=== PATIENT | female | born 1945 | race Caucasian/White ===

== ENCOUNTER → 2018-04-10 10:56 | Outpatient (CLI) | payer OTHER, SELFPAY | PROVIDERS: Family Provider Family Medicine; PCP Family Medicine; Visit Provider Family Medicine | DX: R63.4 Abnormal weight loss (principal); K90.0 Celiac disease; Z53.9 Procedure and treatment not carried out, unspecified reason ==

== ENCOUNTER → 2018-04-17 10:56 | Outpatient (CLI) | payer OTHER, SELFPAY ==
--- NOTE | 2018-04-17 12:34 | DI.CT.S_ITS ---
PROCEDURE: CT ABDOMEN PELVIS W CON INDICATIONS: WEIGHT LOSS,CELIAC DISEASE TECHNIQUE: After the administration of oral and intravenous contrast, 5 mm thick sections acquired from the diaphragms to the symphysis. 5 mm thick coronal and sagittal reformats were performed. For radiation dose reduction, the following was used: automated exposure control, adjustment of mA and/or kV according to patient size. COMPARISON: None. FINDINGS: Image quality: Excellent. ABDOMEN: Lung bases: Lung bases are clear. Heart size is normal. Solid organs: Liver is normal in size and enhancement. Gallbladder appears normal. Biliary system is non-dilated. Pancreas enhances normally. Spleen is normal in size and enhancement. No adrenal nodules. Kidneys are normal in size and enhancement, without hydronephrosis. Peritoneum and bowel: Stomach, small bowel, and colon loops are normal in caliber and wall thickness. No free fluid or air. Nodes and vessels: No retroperitoneal or mesenteric adenopathy. Aorta and inferior vena cava are normal in caliber. Miscellaneous: No ventral hernias. PELVIS: Genitourinary: Bladder wall thickness is normal. Miscellaneous: No inguinal hernias or adenopathy. Mild diverticulosis without acute diverticulitis. Bones: No suspicious bony lesions. No vertebral body compression fractures. IMPRESSION: A source of pelvic pain is not found. There is mild diverticulosis without acute diverticulitis. Clinical history indicates prior cervical carcinoma. No adenopathy or peritoneal mass lesion is found. Dictated by: Jorge Marie M.D. on 04/17/2018 at 16:03 Approved by: Jorge Marie M.D. on 04/17/2018 at 16:05
== END ==
PROVIDERS: Family Provider Family Medicine; PCP Family Medicine; Visit Provider Family Medicine
DX: K90.0 Celiac disease (principal); R63.4 Abnormal weight loss; K57.90 Diverticulosis of intestine, part unspecified, without perforation or abscess without bleeding; R10.2 Pelvic and perineal pain; Z85.41 Personal history of malignant neoplasm of cervix uteri
CPT/HCPCS: 74177; Q9967

== ENCOUNTER 2018-08-23 01:23 | Emergency (ER) | payer OTHER, SELFPAY ==
[2018-08-23 01:35] VITALS: BP 149/90; PULSE 79; RESP 18; TEMP 37.5; O2SAT 100; BMI 17.0
--- NOTE | 2018-08-23 01:52 | ED.FALL ---
HPI - Fall General Chief Complaint: Fall Stated Complaint: Stress Time Seen by Provider: 08/23/18 01:25 Source: patient and EMS Mode of arrival: EMS Limitations: no limitations History of Present Illness HPI Narrative: 73-year-old female brought in by EMS after they were called by the patient's neighbor. Is reported that the patient fell earlier this evening. She reports that she had ?3 drinks ?she states she was walking in to her living room when she fell over. She is unsure if she hit her head. She states that she remembers being under the table in the room and had a difficult time standing. She was able to crawl out from under the bed and able to reach the phone where she called her neighbor. The neighbor called 911 because they had difficulty standing her up. EMS reports that when they arrived at the house they were able to stand the patient she was able to walk without any problems. They brought her in for evaluation. Patient has no complaints. EMS report that on the ride here the patient was stating that she is having a lot of ?stress? at home with regard to family issues. Related Data Allergies Allergy/AdvReac Type Severity Reaction Status Date / Time Iodine Allergy Unknown Uncoded 08/23/18 01:48 Hydrocodone AdvReac Unknown Uncoded 08/23/18 01:48 Review of Systems Constitutional Denies headache(s) Eyes Denies change in vision ENT Ears, Nose, Mouth, and Throat: Denies vertigo, Denies dizziness, Denies headache(s) and Denies disequilibrium Cardiovascular Denies chest pain, Denies syncope, Denies rapid heart rate, Denies edema, Denies irregular heart rhythm, Denies palpitations and Denies dyspnea Respiratory Denies cough and Denies dyspnea Gastrointestinal Gastrointestinal: Denies abdominal pain, Denies nausea and Denies vomiting Genitourinary Denies dysuria Musculoskeletal Denies myalgias, Denies arthralgias and Denies numbness Integumentary/Breasts Denies rash Neurologic Denies behavioral changes, Denies confusion, Denies vertigo, Denies dizziness, Denies syncope, Denies headache(s), Denies memory loss, Denies numbness, Denies paresthesias and Denies disequilibrium Psychiatric Denies behavioral changes, Denies confusion and Denies memory loss Comments: ?Stressed ? Endocrine Denies palpitations Hematologic/Lymphatic Denies easy bleeding and Denies easy bruising Allergic/Immunologic Denies urticaria Exam Initial Vital Signs Initial Vital Signs: Vital Signs Temperature 99.5 F 08/23/18 01:35 Pulse Rate 79 08/23/18 01:35 Respiratory Rate 18 08/23/18 01:35 Blood Pressure 149/90 H 08/23/18 01:35 Pulse Oximetry 100 08/23/18 01:35 Const General: cooperative, comfortable, well developed, well groomed and No acute distress Orientation: alert, awake and oriented x3 HENMT Head: normal to inspection and normocephalic Ears: hearing grossly normal bilaterally Eyes Pupils: PERRL EOM: EOM intact bilaterally Resp Effort & Inspection: normal respiratory effort Auscultation: clear to auscultation bilaterally Cardio Rate: regular rate Rhythm: regular rhythm Pulses: radial pulses present GI Inspection: non-distended Palpation: soft, No firm and No tender Back/Spine/Pelvis Cervical Spine: No collar present, No cervical spinal tenderness and No step off deformity Thoracic/Lumbar Spine: No thoracic spinal tenderness and No lumbar spinal tenderness Skin Lesions: no lesions Rashes: no rashes Neuro General: alert, awake and oriented x3 Cognition: normal cognition Speech: speech normal Motor: muscle tone normal throughout Extrem General: normal to inspection, capillary refill normal and No edema Psych Appearance: grossly normal and well kempt [facility] Medical History (Updated 08/23/18 @ 03:12 by Janes Farr DO) Patient denies medical problems (Acute) Social History Smoking Status: Current every day smoker Social History Smoking Status: Current every day smoker Scores GCS Caren coma scale eye opening: Spontaneous Caren coma scale verbal response: Orientated [place] coma scale motor response: Obey commands Caren coma scale total score: 15 Course Orders Ordered: ED Orders 08/23/18 EKG-12 Lead Routine 08/23/18 01:53 CT head/brain wo con Stat 08/23/18 02:04 Basic Metabolic Panel Stat Complete Blood Count AUTO DIFF Stat Vital Signs - 8 hr 08/23/18 01:35 Temperature 99.5 F Pulse Rate 79 Respiratory Rate 18 Blood Pressure 149/90 H Pulse Oximetry 100 MDM - Fall Lab Data Attestation: I reviewed the patient's lab results. Result diagrams: 08/23/18 02:04 08/23/18 02:04 Lab Results 08/23/18 08/23/18 Range/Units 02:04 02:04 WBC 4.9 (4.5-11.0) X10^3/uL RBC 3.45 L (4.0-5.2) X10^6/uL Hgb 12.6 (12.0-16.0) g/dL Hct 36.2 (36-46) % MCV 104.8 H (80-100) fL MCH 36.5 H (26-34) PG MCHC 34.8 (30-36) % RDW 13.8 (11.6-14.8) % Plt Count 118 L (150-400) X10^3/uL Neut % (Auto) 50.7 (50-75) % Lymph % (Auto) 31.2 (25-40) % [place] % (Auto) 14.2 H (3-14) % Eos % (Auto) 2.8 (2-4) % Baso % (Auto) 1.1 (0-2) % Neut # (Auto) 2500 (0345-8013) /uL Lymph # (Auto) 1500 (9047-8275) /uL [place] # (Auto) 700 (0-900) /uL Eos # (Auto) 100 (0-450) /uL Baso # (Auto) 100 (0-100) /uL Sodium 132 L (137-145) mmol/L Potassium 3.2 L (3.4-5.1) mmol/L Chloride 94 L (98-107) mmol/L Carbon Dioxide 22 (22-32) mmol/L BUN 8 (7-17) mg/dL Creatinine 0.70 (0.52-1.04) mg/dL Estimated GFR > 60.0 (>60) mL/min BUN/Creatinine Ratio 11.4 (6-22) Glucose 82 (80-110) mg/dL Calcium 9.1 (8.4-10.2) mg/dL Point of Care Testing Glucose POC [address] scan - head: Radiologist's impression: Generalized involutional changes and chronic microvascular changes noted. No acute abnormality identified ECG Data Attestation: I personally reviewed and interpreted this ECG as follows: Prior ECG tracings: not available for review Interpretation: Sinus rhythm Ventricular rate is 70 First degree AV block p.r. interval 2-1 milliseconds Normal axis Normal QRS No ST T wave changes MDM Narrative Medical decision making narrative: Patient is alert and oriented x3. Has a GCS of 15. Head CT was unremarkable. No injuries noted on the exam. Patient is asking to go home. Will hold on further workup for now. Patient is given return precautions and follow-up instructions. She expressed understanding and agreement with plan. Discharge Plan Departure Patient Disposition: Home Clinical Impression: Fall Qualifiers: Encounter type: initial encounter Qualified Code(s): W19.XXXA - Unspecified fall, initial encounter Instructions: How to Prevent Falls Activity Restrictions/Additional Instructions: Recommend you continue all of your medications as directed. Contact your primary provider for a follow-up. No driving for the next 24 hours or in the future if you partake in intoxicating substances. Return to the emergency department for any new or worsening symptoms Referrals: Janes Pagan MD [Primary Care Provider] -
--- NOTE | 2018-08-23 01:53 | DI.CT.S_ITS ---
PROCEDURE: CT HEAD/BRAIN WO CON INDICATIONS: Passed out hit head not on anticoagulation TECHNIQUE: Noncontrast 4.5 mm thick angled axial sections acquired from the foramen magnum to the vertex, with coronal and sagittal reformats. For radiation dose reduction, the following was used: automated exposure control, adjustment of mA and/or kV according to patient size. COMPARISON: [facility], CT, HEAD WITHOUT CONTRAST, 10/07/2006, 14:07. FINDINGS: Image quality: Diagnostic. CSF spaces: Basal cisterns are patent. No extra-axial fluid collections. Ventricles are mildly prominent with corresponding parenchymal volume loss has developed in the interim. Brain: No midline shift. No intracranial masses or hemorrhage. [place]-white matter interface is normal. Subtle areas of low attenuation are seen within the periventricular and deep white matter of the supratentorial brain. Skull and face: Calvarium and visualized facial bones are intact, without suspicious lesions. Sinuses: Visualized sinuses and mastoids are clear. IMPRESSION: 1. No acute intracranial hemorrhage. 2. Interval development of mild parenchymal volume loss and probable chronic small vessel ischemic changes. Note: The preliminary [facility] report and the final report are concordant. Dictated by: Trey Ignacio M.D. on 08/23/2018 at 7:41 Approved by: Trey Ignacio M.D. on 08/23/2018 at 7:43
[2018-08-23 01:59] VITALS: BP 139/77; PULSE 92; RESP 18; O2SAT 97
[2018-08-23 02:13] LABS: Add Manual Diff / Slide Review NO; Basophils Absolute Auto 100 /uL (0-100); Basophils Percent Auto 1.1 % (0-2); Eosinophils Absolute Auto 100 /uL (0-450); Eosinophils Percent Auto 2.8 % (2-4); Hematocrit 36.2 % (36-46); Hemoglobin 12.6 g/dL (12.0-16.0); Lymphocytes Absolute Auto 1500 /uL (1100-4500); Lymphocytes Percent Auto 31.2 % (25-40); Mean Corpuscular HGB Conc 34.8 % (30-36); Mean Corpuscular Hemoglobin 36.5 PG (26-34); Mean Corpuscular Volume 104.8 fL (80-100); Monocytes Absolute Auto 700 /uL (0-900); Monocytes Percent Auto 14.2 % (3-14); Neutrophils Absolute Auto 2500 /uL (1500-7000); Neutrophils Percent Auto 50.7 % (50-75); Platelet Count 118 X10^3/uL (150-400); Red Blood Cell Count 3.45 X10^6/uL (4.0-5.2); Red Cell Distribution Width 13.8 % (11.6-14.8); White Blood Cell Count 4.9 X10^3/uL (4.5-11.0)
[2018-08-23 02:23] LABS: BUN Creatinine Ratio 11.4 (6-22); Blood Urea Nitrogen 8 mg/dL (7-17); Calcium 9.1 mg/dL (8.4-10.2); Carbon Dioxide 22 mmol/L (22-32); Chloride 94 mmol/L (98-107); Estimated Glomerular Filt Rate > 60.0 mL/min (>60); Glucose 82 mg/dL (80-110); HEMOLYSIS < 15 (0-50); Potassium 3.2 mmol/L (3.4-5.1); Sodium 132 mmol/L (137-145)
[2018-08-23 03:24] VITALS: BP 121/76; PULSE 86; RESP 16; O2SAT 98
--- NOTE | 2018-08-23 03:30 | PC.NURSE ---
stand by assist provided while ambulating to bathroom and back to bed.
--- NOTE | 2018-08-23 04:00 | PC.NURSE ---
Pt attempting to find phone numbers for her neighbors for a ride
== END 2018-08-23 04:06 | disposition home or self-care (01) ==
PROVIDERS: Emergency Provider Emergency Medicine; PCP Family Medicine
DX: R55 Syncope and collapse (principal); S00.81XA Abrasion of other part of head, initial encounter; W19.XXXA Unspecified fall, initial encounter
CPT/HCPCS: 70450; 80048; 82962; 85025; 93005; 93010; 99283; 99285

== ENCOUNTER → 2018-09-21 11:14 | Outpatient (ROUT) | payer OTHER, SELFPAY ==
[2018-09-21 11:34] LABS: Ammonia (NH3) < 9.0 umol/L (9-30)
== END ==
PROVIDERS: PCP Family Medicine; Visit Provider Family Medicine
DX: R55 Syncope and collapse (principal); D64.9 Anemia, unspecified; E03.9 Hypothyroidism, unspecified; Z79.899 Other long term (current) drug therapy
CPT/HCPCS: 82140

== ENCOUNTER 2019-02-15 11:30 | Observation (INO) | payer OTHER, SELFPAY ==
[2019-02-15] VITALS (10 sets, daily range): BP systolic 103–160; BP diastolic 69–131; PULSE 70–90; RESP 14–25; TEMP 36.5–36.8; O2SAT 97–100; BMI 16.8
--- NOTE | 2019-02-15 11:39 | ED_ITS ---
HPI - Fall General Chief Complaint: Fall Stated Complaint: Fall-back pain Time Seen by Provider: 02/15/19 11:39 Source: patient, family and EMS Mode of arrival: EMS History of Present Illness HPI Narrative: The patient is a 74-year-old female who presents with back pain. 5 days ago she was standing bending over un plugging the television to reset it when she fell backwards landing on her bottom. Since then she has had intense spasming and pain unable to stand up. She has been crawling around on the floor since then. It is questionable how long she has had incontinence however she states since the fall she can no longer tell when she has to go it just comes. She denies any weakness in her lower extremities no numbness or tingling. says that he can't later keep crawling around on for. She has only been taking ibuprofen for pain she currently does not want anything for pain. She denies any chest pain or shortness of breath. No abdominal pain nausea or vomiting. She denies hitting her head no cervical pain. MD complaint: fall Onset (ago): day(s) (5) Fall from: standing Fall witnessed: yes, by family Place fall occurred: home Loss of consciousness: none Related Data Home Medications Medication Instructions Recorded Confirmed levothyroxine 56 mcg PO QAM 02/15/19 02/15/19 Allergies Allergy/AdvReac Type Severity Reaction Status Date / Time Iodine and Iodide Containing Allergy Unknown Verified 02/15/19 11:37 Produc hydrocodone AdvReac Unknown Verified 02/15/19 11:37 Review of Systems Review of Systems ROS Unobtainable: All systems reviewed & are unremarkable except as noted in HPI and below Constitutional Constitutional: Denies chills, Denies fever(s), Denies lethargy and Denies weakness ENT Ears, Nose, Mouth, and Throat: Denies change in voice, Denies neck pain and Denies sore throat Cardiovascular Cardiovascular: Denies chest pain, Denies irregular heart rhythm, Denies lig htheadedness, Denies palpitations, Denies dyspnea, Denies dyspnea on exertion and Denies orthopnea Respiratory Respiratory: Denies cough, Denies dyspnea, Denies dyspnea on exertion and Denies wheezing Gastrointestinal Gastrointestinal: Denies abdominal pain, Denies change in bowel habits, Denies diarrhea, Denies nausea and Denies vomiting Genitourinary Genitourinary: Denies hematuria, Denies flank pain, Reports urinary incontinence and Reports urinary urgency Musculoskeletal Musculoskeletal: Reports as per HPI, Reports back pain and Denies neck pain Integumentary/Breasts Skin/Breast: Denies pruritus, Denies erythema, Denies rash and Denies wounds Neurologic Neurologic: Denies weakness Endocrine Endocrine: Denies palpitations Allergic/Immunologic Allergic/Immunologic: Denies wheezing Patient History Medical History (Updated 02/15/19 @ 16:11 by Ruth Donaldson DO) Hypothyroid (Acute) Patient denies medical problems (Acute) Social History household members: spouse Smoking Status: Former smoker Smoking Status: Former smoker alcohol intake frequency: 3 or more drinks per day Substance Use Type: marijuana Exam Initial Vital Signs Initial Vital Signs: Vital Signs Temperature 98.1 F 02/15/19 11:31 Pulse Rate 80 02/15/19 11:31 Respiratory Rate 18 02/15/19 11:31 Blood Pressure 160/131 H 02/15/19 11:31 Pulse Oximetry 100 02/15/19 11:31 GENERAL: Alert thin elderly female no acute distress HEENT: Head atraumatic,EOMI, pupils reactive, CARDIOVASCULAR: Regular rate and rhythm without murmurs, rubs or gallops. RESPIRATORY: Breath sounds equal bilaterally, no wheezes rales or rhonchi. ABDOMEN: Soft, nontender. Normoactive bowel sounds all 4 quadrants. No guarding or rebound. BACK: No sign of trauma no vertebral tenderness she is tender in her sacral area no step-off RECTAL: Very good sphincter tone EXTREMITIES: Normal range of motion, no clubbing or edema. Neurovascularly intact NEUROLOGICAL: Alert and oriented x4. SKIN: Warm, dry, no laceration, no petechiae, no rashes or lesions. Course Orders Ordered: ED Orders 02/15/19 11:48 XR lumbar spine 2-3V Stat XR sacrum coccyx min 2V Stat 02/15/19 12:20 Complete Blood Count AUTO DIFF Stat Comprehensive Metabolic Panel Stat Creatine Kinase Stat 02/15/19 13:16 CT lumbar spine wo con Stat 02/15/19 13:18 Consult to Physical Therapy Evaluate & Treat Cyclobenzaprine HCl (Flexeril) 5 mg PO Q8HR PRN PRN Reason: Spasms Ketorolac Tromethamine (Toradol) 15 mg IV Q8H [facility] Stop: 02/16/19 10:46 Levothyroxine Sodium (Synthroid) 56 mcg PO 0600 [facility] Discontinued Medications Cyclobenzaprine HCl (Flexeril) 5 mg PO NOW ONE Stop: 02/15/19 13:46 Last Admin: 02/15/19 13:51 Dose: 5 mg Documented by: DIANA Ketorolac Tromethamine (Toradol) 15 mg IM NOW ONE Stop: 02/15/19 13:46 Last Admin: 02/15/19 13:51 Dose: 15 mg Documented by: DIANA Vital Signs Vital signs: Vital Signs - 8 hr 02/15/19 11:31 02/15/19 11:41 02/15/19 12:38 Temperature 98.1 F Pulse Rate 80 84 78 Respiratory Rate 18 14 18 Blood Pressure 160/131 H Blood Pressure [Left Arm] 154/94 H 152/69 H Pulse Oximetry 100 100 100 02/15/19 13:30 02/15/19 14:37 02/15/19 15:05 Temperature Pulse Rate 78 88 77 Respiratory Rate 18 20 19 Blood Pressure Blood Pressure [Left Arm] 153/91 H 153/98 H 103/87 Pulse Oximetry 97 97 97 02/15/19 16:01 Temperature Pulse Rate 79 Respiratory Rate 25 H Blood Pressure Blood Pressure [Left Arm] 154/92 H Pulse Oximetry 97 MDM - Fall Lab Data Attestation: I reviewed the patient's lab results. Result diagrams: 02/15/19 12:20 02/15/19 12:20 Labs: Lab Results 02/15/19 02/15/19 02/15/19 Range/Units 12:20 12:20 12:20 WBC 6.3 (4.5-11.0) X10^3/uL RBC 3.69 L (4.0-5.2) X10^6/uL Hgb 13.6 (12.0-16.0) g/dL Hct 38.8 (36-46) % MCV 105.0 H (80-100) fL MCH 36.9 H (26-34) PG MCHC 35.1 (30-36) % RDW 14.3 (11.6-14.8) % Plt Count 134 L (150-400) X10^3/uL Neut % (Auto) Not Reportable Lymph % (Auto) Not Reportable [place] % (Auto) Not Reportable Eos % (Auto) Not Reportable Baso % (Auto) Not Reportable Lymph # (Auto) Not Reportable [place] # (Auto) Not Reportable Baso # (Auto) Not Reportable Total Counted 100 Seg Neutrophils % 53.0 (38-70) % Band Neutrophils % 3.0 (3-7) % Lymphocytes % (Manual) 17.0 L (25-45) % Monocytes % (Manual) 22.0 H (2-11) % Eosinophils % (Manual) 4.0 (2-4) % Metamyelocytes % 1.0 H (-0) % Neutrophils # (Manual) 3528 (4966-8014) /uL Platelet Estimate Decreased on smear Plt Morphology Comment RBC Morphology See below Macrocytosis 3+ H Sodium 138 (137-145) mmol/L Potassium 2.9 L (3.4-5.1) mmol/L Chloride 101 (98-107) mmol/L Carbon Dioxide 22 (22-32) mmol/L BUN 38 H (7-17) mg/dL Creatinine 1.00 (0.52-1.04) mg/dL Estimated GFR 54.2 L (>60) mL/min BUN/Creatinine Ratio 38.0 H (6-22) Glucose 97 (80-110) mg/dL Calcium 9.5 (8.4-10.2) mg/dL Total Bilirubin 1.5 H (0.2-1.3) mg/dL AST 97 H (14-36) IU/L ALT 48 H (<35) IU/L Alkaline Phosphatase 89 (38-126) U/L Total Creatine Kinase 522 H (30-135) U/L Total Protein 7.8 (6.3-8.2) g/dL Albumin 4.3 (3.5-5.0) g/dL Globulin 3.5 (1.7-4.1) g/dL Albumin/Globulin Ratio 1.2 (1.0-2.8) TSH 26.40 H (0.47-4.68) uIU/mL Imaging Data Lumbar x-ray: Radiologist's Impression: PROCEDURE: XR LUMBAR SPINE 2-3V INDICATIONS: pain fall TECHNIQUE: 3 views of the lumbar spine were acquired. COMPARISON: Same day coccyx and sacrum radiographs. CT abdomen and pelvis 04/17/2018. FINDINGS: Bones: 5 [id number] vertebrae are present. There is mild scoliosis. No vertebral body compression fractures. Extensive degenerative change most pronounced at left L3-L4. L4-L5 facet joint hypertrophy. No suspicious bony lesions. Osteopenia. Soft tissues: Overlying bowel gas pattern is normal. No suspicious soft tissue calcifications. Vascular calcifications. IMPRESSION: No acute osseous abnormality. Extensive degenerative change and mild scoliosis. Dictated by: Richard Dias M.D. on 02/15/2019 at 12:40 Sacral x-ray: Radiologist's Impression: PROCEDURE: XR SACRUM COCCYX MIN 2V INDICATIONS: pain fall TECHNIQUE: 3 views of the sacrum and coccyx acquired. COMPARISON: [facility], CT, CT ABDOMEN PELVIS W CON, 04/17/2018, 12:07. FINDINGS: Bones: The sacrum and coccyx are not adequately evaluated on this examination. No obvious displaced fractures are appreciated. Degenerative changes of the sacroiliac joints and pubis symphysis are noted. Soft tissues: Visualized bowel gas pattern is normal. No suspicious soft tissue densities. IMPRESSION: Limited evaluation of the sacrum and coccyx. No displaced fractures are appreciated. Dictated by: Trey Ignacio M.D. on 02/15/2019 at 11:[address]: Radiologist's Impression: PROCEDURE: CT LUMBAR SPINE WO CON INDICATIONS: fall pain, sacral and lumbar xray neg can't walk TECHNIQUE: Noncontrast 3 mm thick sections acquired from the T12 level to the sacrum. Sagittal and coronal reformats were constructed. For radiation dose reduction, the following was used: automated exposure control. COMPARISON: None. FINDINGS: Image quality: Excellent. Bones: Mild dextrocurvature. Trace anterolisthesis of L5 on S1, trace anterolisthesis of L4 on L5. No acute vertebral body compression fractures. Bilateral sacral insufficiency fractures with a horizontal component at the superior endplate of S2. No sudha picious lytic or blastic bony lesions. No pars defects. T12-L1: No canal stenosis or foraminal stenosis. L1-L2: No canal stenosis or foraminal stenosis. L2-L3: Mild disc bulge and facet ligament hypertrophy. Mild canal stenosis. No significant foraminal stenosis. L3-L4: Arch chronic disc height loss. Mild disc bulge. Mild facet ligament hypertrophy. Mild canal stenosis. L4-L5: Severe multifactorial canal stenosis secondary to disc bulge and facet and ligament hypertrophy and minimal anterolisthesis. Mild right foraminal narrowing and moderate left femoral narrowing. L5-S1: Posterior disc bulge. Mild anterolisthesis. Facet and ligament hypertrophy. Mild canal stenosis. Soft tissues: No retroperitoneal masses or hematomas. Visualized aorta is normal in caliber. Sigmoid diverticulosis. Diffuse aortic atherosclerotic calcifications. IMPRESSION: 1. Bilateral sacral insufficiency fractures. 2. Multifactorial canal stenosis is severe at L4-L5. It is mild at L3-L4 and L5-S1. Dictated by: Bernard Orellana M.D. on 02/15/2019 at 13:48 MDM Narrative Medical decision making narrative: The patient had injury to her back. She now has urinary incontinence which is questionable whether it is new or worsened over the past few days. She is actually moving her legs very well and has no numbness tingling or weakness. She also has very good rectal tone, I do not suspect cauda equina syndrome at this time. 14:30 Discussed case with orthopedic Dr. Simental who states patient may ambulate and weight bear as tolerated she will likely need a walker and possible wheelchair in till fracture heals however no intervention is required. She also likely has osteoporosis and needs work up of that and possibly calcium and vitamin D supplements. Patient is evaluated by Physical therapy she is able to ambulate some with a walker however patient has stairs physical therapy suggest patient be admitted for further evaluation and pain control. Dr. Pagan updated patient's symptoms test results recommendations of ortho and physical with observation Discharge Plan Departure Patient Disposition: Admitted as Observation Clinical Impression: Bilateral sacral insufficiency fracture Qualifiers: Encounter type: initial encounter Qualified Code(s): M84.48XA - Pathological fracture, other site, initial encounter for fracture Discharge Date/Time: 02/15/19 17:04 Admit Date/Time: 02/15/19 16:09 Admit Provider: Janes Pagan
--- NOTE | 2019-02-15 11:48 | DI.RAD.S_ITS ---
PROCEDURE: XR LUMBAR SPINE 2-3V INDICATIONS: pain fall TECHNIQUE: 3 views of the lumbar spine were acquired. COMPARISON: Same day coccyx and sacrum radiographs. CT abdomen and pelvis 04/17/2018. FINDINGS: Bones: 5 [id number] vertebrae are present. There is mild scoliosis. No vertebral body compression fractures. Extensive degenerative change most pronounced at left L3-L4. L4-L5 facet joint hypertrophy. No suspicious bony lesions. Osteopenia. Soft tissues: Overlying bowel gas pattern is normal. No suspicious soft tissue calcifications. Vascular calcifications. IMPRESSION: No acute osseous abnormality. Extensive degenerative change and mild scoliosis. Dictated by: Richard Dias M.D. on 02/15/2019 at 12:40 Approved by: Richard Dias M.D. on 02/15/2019 at 12:43
--- NOTE | 2019-02-15 11:48 | DI.RAD.S_ITS ---
PROCEDURE: XR SACRUM COCCYX MIN 2V INDICATIONS: pain fall TECHNIQUE: 3 views of the sacrum and coccyx acquired. COMPARISON: [facility], CT, CT ABDOMEN PELVIS W CON, 04/17/2018, 12:07. FINDINGS: Bones: The sacrum and coccyx are not adequately evaluated on this examination. No obvious displaced fractures are appreciated. Degenerative changes of the sacroiliac joints and pubis symphysis are noted. Soft tissues: Visualized bowel gas pattern is normal. No suspicious soft tissue densities. IMPRESSION: Limited evaluation of the sacrum and coccyx. No displaced fractures are appreciated. Dictated by: Trey Ignacio M.D. on 02/15/2019 at 11:50 Approved by: Trey Ignacio M.D. on 02/15/2019 at 11:52
[2019-02-15 12:49] LABS: Alanine Aminotransferase 48 IU/L (<35); Albumin 4.3 g/dL (3.5-5.0); Albumin Globulin Ratio 1.2 (1.0-2.8); Alkaline Phosphatase 89 U/L (38-126); Aspartate Aminotransferase 97 IU/L (14-36); Bilirubin Total 1.5 mg/dL (0.2-1.3); Blood Urea Nitrogen 38 mg/dL (7-17); Calcium 9.5 mg/dL (8.4-10.2); Carbon Dioxide 22 mmol/L (22-32); Chloride 101 mmol/L (98-107); Creatine Kinase 522 U/L (30-135); Estimated Glomerular Filt Rate 54.2 mL/min (>60); Globulin 3.5 g/dL (1.7-4.1); Glucose 97 mg/dL (80-110); HEMOLYSIS < 15 (0-50); Potassium 2.9 mmol/L (3.4-5.1); Sodium 138 mmol/L (137-145); Total Protein 7.8 g/dL (6.3-8.2)
[2019-02-15 12:50] LABS: Hematocrit 38.8 % (36-46); Hemoglobin 13.6 g/dL (12.0-16.0); Mean Corpuscular HGB Conc 35.1 % (30-36); Mean Corpuscular Hemoglobin 36.9 PG (26-34); Platelet Count 134 X10^3/uL (150-400); Red Blood Cell Count 3.69 X10^6/uL (4.0-5.2); Red Cell Distribution Width 14.3 % (11.6-14.8); White Blood Cell Count 6.3 X10^3/uL (4.5-11.0)
[2019-02-15 12:51] LABS: Add Manual Diff / Slide Review YES
--- NOTE | 2019-02-15 13:16 | DI.CT.S_ITS ---
PROCEDURE: CT LUMBAR SPINE WO CON INDICATIONS: fall pain, sacral and lumbar xray neg can't walk TECHNIQUE: Noncontrast 3 mm thick sections acquired from the T12 level to the sacrum. Sagittal and coronal reformats were constructed. For radiation dose reduction, the following was used: automated exposure control. COMPARISON: None. FINDINGS: Image quality: Excellent. Bones: Mild dextrocurvature. Trace anterolisthesis of L5 on S1, trace anterolisthesis of L4 on L5. No acute vertebral body compression fractures. Bilateral sacral insufficiency fractures with a horizontal component at the superior endplate of S2. No suspicious lytic or blastic bony lesions. No pars defects. T12-L1: No canal stenosis or foraminal stenosis. L1-L2: No canal stenosis or foraminal stenosis. L2-L3: Mild disc bulge and facet ligament hypertrophy. Mild canal stenosis. No significant foraminal stenosis. L3-L4: Arch chronic disc height loss. Mild disc bulge. Mild facet ligament hypertrophy. Mild canal stenosis. L4-L5: Severe multifactorial canal stenosis secondary to disc bulge and facet and ligament hypertrophy and minimal anterolisthesis. Mild right foraminal narrowing and moderate left femoral narrowing. L5-S1: Posterior disc bulge. Mild anterolisthesis. Facet and ligament hypertrophy. Mild canal stenosis. Soft tissues: No retroperitoneal masses or hematomas. Visualized aorta is normal in caliber. Sigmoid diverticulosis. Diffuse aortic atherosclerotic calcifications. IMPRESSION: 1. Bilateral sacral insufficiency fractures. 2. Multifactorial canal stenosis is severe at L4-L5. It is mild at L3-L4 and L5-S1. Dictated by: Bernard Orellana M.D. on 02/15/2019 at 13:48 Approved by: Bernard Orellana M.D. on 02/15/2019 at 13:55
[2019-02-15 13:21] LABS: Neutrophils Absolute Manual 3528 /uL (3000-5900); Total Cells Counted 100
[2019-02-15 13:22] LABS: Macrocytosis 3+; Platelet Estimate Decreased on smear
[2019-02-15] MEDS: CYCLOBENZAPRINE 5 MG TABLET PO ×2 (13:51→22:18)
[2019-02-15] MEDS: KETOROLAC 60 MG/2 ML VIAL 15 MG IM (13:51)
--- NOTE | 2019-02-15 17:13 | PT.IIE ---
Medical History (Last Updated 02/15/19 @ 11:38 by Heather Lynne, RN) Hypothyroid (Acute) Patient denies medical problems (Acute) Physical Therapy Inpatient Evaluation/Re-Eval M1 PT/OT-IP Prior Functional Status Start: 02/15/19 13:52 Freq: Status: Active Protocol: Document 02/15/19 16:45 AW (Rec: 02/15/19 17:13 AW [id number]) Medical Review Prior Functional Status Medical History Reviewed Yes Communication WNL Mobility and Gait Modified independent with use of hurrycane at all times Activities of Daily Living and IADL's Independent including driving Social History Household Members spouse Living Arrangements House Number of Floors (Floors) Two Floors Number of Stairs To Enter/Railing? 8 BUCKY with wide bilateral rails (can only use one at a time). Pt and her spouse live on the entry driver operator without need to access second floor. There is a back entrance with only 2 steps, but can only be accessed by traversing uneven ground. Home Environment Standard Height Toilet,Tub/ Shower Doors Home Equipment Quad Cane,Crutches,Grab Bars In Shower Employment Status Retired Additional Social History Comment Pt lives with her spouse. Both are retired. Her is available and able to assist as needed. M2 PT-IP Current Condition Start: 02/15/19 13:52 Freq: Status: Active Protocol: Document 02/15/19 16:45 AW (Rec: 02/15/19 17:13 AW [id number]) Physical Therapy Current Condition Current Condition Evaluation Date 02/15/19 Treatment Diagnosis sacral insufficiency fractures , difficulty in walking Onset Date 02/10/19 Weight Bearing Status Weight Bearing Status Weight Bear as Tolerated Allowed Weight Bearing Amount (enter % Per Dr. Donaldson, Dr. Malin or #) (%) consulted and recommended WBAT with assistive device. M3 PT-IP Subjective Start: 02/15/19 13:52 Freq: Status: Active Protocol: Document 02/15/19 16:45 AW (Rec: 02/15/19 17:13 AW [id number]) Subjective Physical Therapy Visit Type Type Initial Evaluation Visit Start Time 15:14 Visit Stop Time 15:48 Total Visit Minutes 34 Notes Pt seen with spouse, Benjamin, present. Number of DIRECTOR OF RETAIL Visits 0 Physical Therapy Visit Comments Patient Comments Pt willing to attempt mobility even though she has not been on her feet since last Friday. Patient Goals To go home as soon as possible Therapy Pain Assessment Pain When Pain Assessed During Mobility Pain Present Pain Present Pain Reported Location R hip Intensity 9 Scale Used 1/10 at rest; 9/10 with mobility Description Acute,Sharp,Shooting Pain Behaviors Calling Out,Facial Grimacing, Guarding,Restlessness,Wincing Pain Management Techniques Distraction,Modification of Treatment,Re-positioning M4 PT-IP Mobility and Gait Start: 02/15/19 13:52 Freq: Status: Active Protocol: Document 02/15/19 16:45 AW (Rec: 02/15/19 17:13 AW [id number]) PT-Bed Mobility Assessment Rolling Type of Rolling Roll to Right,Roll to Left Level of Assist Contact Guard Assistance Supine to Sit Supine to Sit Moderate Assistance,1 Person Assistance Sit to Supine Sit to Supine Minimal Assistance,1 Person Assistance Scooting Scooting to Edge of Bed Minimal Assistance Scooting Up and Down in Bed Dependent PT-Transfer Assessment Sit to and From Stand Sit to and from Stand Minimal Assistance,1 Person Assistance,Use of Upper Extremities Equipment Transfer Assistive Device Gait Belt,Front Wheeled Walker Orthotic/Prosthetic Devices or Brace: No Transfers Transfer Destination Bed Transfer Technique pt ambulated with FWW Transfer Ability Level of Assist Minimal Assistance,1 Person Assistance,Use of Upper Extremities Comments Mobility Comments Pt reports highly irritable pain symptoms with movement, but improvement as soon as she is able to rest. Initial attempts at supine to sit were unsuccessful, including log rolling right and left. After explaining to pt that the transition to sitting would likely be the most painful, she was willing to work through it. PT placed a cotton draw sheet under the pt's pelvis and provided mod A x 1 to pivot her hips to face the right side of the bed. In sitting, pt was observed to lean leftward in order to unweight her right side. She was able to stand with FWW min A x 1 with report of mild lightheadedness which resolved within a minute. BP in supine was 103/87 and fabiola to 127/ 105 in standing. Once pt's symptoms cleared, she was able to ambulate 10 feet with FWW CGA and then transfer back to supine min A x 1 with assist to lift her legs to the bed. With pt reporting significantly increased pain, BP was assessed at 139/118 once repositioned on the gurney. Gait Assessment Gait Gait Assistance Required: Contact Guard Assist Distance (Feet) 10 Able to Maintain Weight Bearing Status Yes During Gait Assistive Devices Assistive Device Gait Belt,Front Wheeled Walker Orthotic/Prosthetic Devices or Brace: No Gait Deviations General Gait Pattern Antalgic,Decreased Stride Length,Decreased Feet Clearance,Flexed Trunk,Step-to Gait Factors Limiting Gait Function Factors Limiting Gait Function Decreased Activity Tolerance, Decreased Strength,Pain Comments Gait Comments See mobility comments for detail. Stair Climbing Assessment Comments Stair Climbing Comments Not assessed. PT-Balance Assessment Sitting Balance and Reactions Static Sitting Balance Ability Good Dynamic Sitting Balance Ability Good Standing Balance and Reactions Static Standing Balance Ability Fair Dynamic Standing Balance Ability Fair Device Used FWW M5 PT-IP Objective Assessments Start: 02/15/19 13:52 Freq: Status: Active Protocol: Document 02/15/19 16:45 AW (Rec: 02/15/19 17:13 AW [id number]) Orientation Orientation/Cognition Level of Alertness Alert Orientation Name,Day of Week,Place, Situation Language Function Ability No Deficits Noted Safety Awareness Understands Safety Issues Memory Description No Deficits Noted Gross Range of Motion Upper Extremity ROM Assessment Left Impaired Impairments Remote history of left proximal humerus fracture ( 2008) Lower Extremity ROM Assessment Bilaterally Impaired Impairments Due to pain Strength Lower Extremity Strength Assessment Bilaterally Impaired Hip 3+/5 Knee 4/5 Ankle 4+/5 Comments Strength Comments Strength assessment limited due to report of hip pain (R>L ) with resisted movement Coordination Assessment Gross Coordination Gross Coordination WNL Sensation Assessment Sensation Gross Sensation WNL M6 PT-IP Treatment Start: 02/15/19 13:52 Freq: Status: Active Protocol: Document 02/15/19 16:45 AW (Rec: 02/15/19 17:13 AW [id number]) Physical Therapy Treatment Education Education Provided Precautions,Weight Bearing Status,Safety Other Treatments Other Treatment Performed PT educated pt on plan of care , weight bearing status, and safe use of FWW M7 PT-IP Assessment and Plan Start: 02/15/19 13:52 Freq: Status: Active Protocol: Document 02/15/19 16:45 AW (Rec: 02/15/19 17:13 AW [id number]) PT Summary Assessment and Plan Potential Rehabilitation Potential Excellent Status of Condition at Evaluation Evolving Summary Impairments Pain,ROM,Strength,Bed Mobility ,Transfers,Gait,Activity Tolerance Assessment Summary Joanie is a 74 yo woman who fell at home 5 days ago and has not been on her feet since that time. She has mobilized by rolling and crawling on the ground. She was seen for PT evaluation in the ED where CT revealed 1. Bilateral sacral insufficiency fractures. 2. Multifactorial canal stenosis is severe at L4-L5. It is mild at L3-L4 and L5-S1. At baseline, pt is modified independent for functional mobility with use of hurrycane at all times and independent for ADL/IADL's. At the time of this evaluation, pt required min to mod assist x 1 for all mobility due to complaints of 9/10 pain with any weightbearing. She was able to walk with FWW CGA but with significantly decreased weightbearing on the R LE. Pt also shifts leftward in sitting and in standing to offweight the right side. PT discharge recommendation is tentatively for home with assistance and outpatient PT but will need to continue assessment once pain is better managed. Goals Bed Mobility Goal Standby Assistance Transfer Goal Standby Assistance,Front Wheeled Walker Gait Goal Standby Assistance,Front Wheel Walker Gait Distance 100 Other Goals - up/down 8 steps with unilateral railing CGA Days to Meet Goals 5 Frequency of Treatment Frequency Of Treatment Twice a Day Treatment Plan Physical Therapy Treatment Plan Bed Mobility Training,Transfer Training,Gait Training, Therapeutic Exercise,Balance Retraining,Discharge Planning, Hot or Cold Pack Other Recommendations and Next Treatment bed mobility, transfers, gait, Focus trial stairs if able Recommendations To Nursing Amount of Assist Needed 1 Person Assist Discharge Recommendations PT Discharge Recommendations Home with Assistance,Home Health Other Discharge Recommendations Will continue to assess Equipment Needed for Home Before FWW for home use Discharge
--- NOTE | 2019-02-15 18:24 | PM.HP.1 ---
History of Present Illness History of Present Illness Date Patient Seen: 02/15/19 Time Patient Seen: 18:00 Chief complaint: Fall-back pain Narrative: Patient is 74-year-old female with 5 days history of following words and landing on her bottom. She did not trip just simply lost balance and fell after pulling a cord out from apply again. Did not hit her head did not lose consciousness but gradually over the next few days developed increasingly severe pain with muscle spasms and bony pain. Also has some neurologic abnormality in that she doesn't feel clearly when she needs to go to the bathroom and that is new since her fall. She has had such bad pain that she actually was crawling around home rather than being able to stand or straight. She had intermittently taken some ibuprofen for pain at home but not doing much. Patient has a long history of alcohol use and smoking as well but she states that this and injury occurred in the manager community outreach after getting up in she was not intoxicated at that point. Patient History Medical History (Updated 02/15/19 @ 16:11 by Ruth Donaldson DO) Hypothyroid (Acute) Patient denies medical problems (Acute) Family & Social History Social History: household members spouse Prior Living Arrangements House Safety & Behavioral: Feels Safe in Current Yes Environment Been Physically Hurt or No Threatened By a Person Tobacco & Substance use: Smoking Status Former smoker alcohol intake frequency 3 or more drinks per day Substance Use Type marijuana Meds Home Medications and Allergies Home Medications Medication Instructions Recorded Confirmed Type levothyroxine 56 mcg PO QAM 02/15/19 02/15/19 History Allergies Allergy/AdvReac Type Severity Reaction Status Date / Time Iodine and Iodide Containing Allergy Unknown Verified 02/15/19 11:37 Produc hydrocodone AdvReac Unknown Verified 02/15/19 11:37 Review of Systems Review of Systems Narrative: Patient sitting in bed comfortably answering questions clearly not oriented to place time and my Dandy PE are RLA in vision is intact speech clear nose will swallowing problems Denies chest pain significant shortness of breath upper back pain Denies abdominal pain Denies palpitations significant edema or pressure on chest Abdomen nontender she denies any nausea vomiting abdominal enlargement Complains of low back pain in the sacral area which is where her fracture is and also where muscle spasms or serious. Patient unable to tell when she needs to urinate and so is incontinent without warning catheter placed in sure were not accumulating volume Lower extremities was since cessation primarily intact and symmetrical diffuse weakness complaints from patient in terms of her ability to move around smoking S line history of alcohol use discussed and negative ache except for those mentioned above Exam Vital Signs (past 8 hours): - 02/15/19 11:31 02/15/19 11:41 02/15/19 12:38 Temperature 98.1 F Pulse Rate 80 84 78 Respiratory Rate 18 14 18 Blood Pressure 160/131 H Blood Pressure [Left Arm] 154/94 H 152/69 H Pulse Oximetry 100 100 100 02/15/19 13:30 02/15/19 14:37 02/15/19 15:05 Temperature Pulse Rate 78 88 77 Respiratory Rate 18 20 19 Blood Pressure Blood Pressure [Left Arm] 153/91 H 153/98 H 103/87 Pulse Oximetry 97 97 97 02/15/19 16:01 02/15/19 17:02 02/15/19 17:15 Temperature 97.7 F Pulse Rate 79 78 70 Respiratory Rate 25 H 20 18 Blood Pressure 154/78 H Blood Pressure [Left Arm] 154/92 H 147/93 H Pulse Oximetry 97 100 100 Oxygen Delivery Method Room Air Oxygen Flow Rate 0 Narrative Exam Narrative: In a patient being in questions appropriately in clearly with clear speech and clear recognition of her location and my identity PERRLA EOMs are intact Mouth without any abnormality bruising issues or malalignments Neck without mass or bruising. Is supple without any JVD Lungs are clear with decreased breath sounds diffusely Cardiovascular exam shows regular rate rhythm without murmur S3 or significant edema Abdomen without hepatosplenomegaly mass rebound or guarding bowel sounds are present and symmetrical Low back has significant pain with any movement or palpation an area of sacrum. Lower extremities show numbness down posterior and patient's incontinence suggest that she is some awareness and control there Skin without significant bruising redness infection cellulitis or concerning skin lesions Rest of patient's neurologic is intact to motor except this limited by pain cognitive speech and sensory except as described above Objective Labs Result Diagrams: 02/15/19 12:20 02/15/19 12:20 Labs: Laboratory Results - last 24 hr 02/15/19 02/15/19 12:20 12:20 WBC 6.3 RBC 3.69 L Hgb 13.6 Hct 38.8 MCV 105.0 H MCH 36.9 H MCHC 35.1 RDW 14.3 Plt Count 134 L Neut % (Auto) Not Reportable Lymph % (Auto) Not Reportable Orange % (Auto) Not Reportable Eos % (Auto) Not Reportable Baso % (Auto) Not Reportable Lymph # (Auto) Not Reportable Orange # (Auto) Not Reportable Baso # (Auto) Not Reportable Total Counted 100 Seg Neutrophils % 53.0 Band Neutrophils % 3.0 Lymphocytes % (Manual) 17.0 L Monocytes % (Manual) 22.0 H Eosinophils % (Manual) 4.0 Metamyelocytes % 1.0 H Neutrophils # (Manual) 3528 Platelet Estimate Decreased on smear Plt Morphology Comment RBC Morphology See below Macrocytosis 3+ H Sodium 138 Potassium 2.9 L Chloride 101 Carbon Dioxide 22 BUN 38 H Creatinine 1.00 Estimated GFR 54.2 L BUN/Creatinine Ratio 38.0 H Glucose 97 Calcium 9.5 Total Bilirubin 1.5 H AST 97 H ALT 48 H Alkaline Phosphatase 89 Total Creatine Kinase 522 H Total Protein 7.8 Albumin 4.3 Globulin 3.5 Albumin/Globulin Ratio 1.2 Assessment & Plan Assessment & Plan narrative: Sent as assessment 1. Sacral fracture following a ground level fall. Patient was not intoxicated or tripping at the time. Pain control with Toradol at this point will get physical therapy evaluation and try to increase movement and help with discomfort. Assessment 2. Hypothyroidism will have patient continue with her current medication level for that. Assessment 3. Smoker. Patient has only had a few cigarettes over the course of last week because she can't move part of her well enough to go where she can smoke. I've encouraged her to consider a nicotine patches during this admission try minimize nicotine withdrawal. Assessment 4. Long history of alcohol abuse. Patient says she has only had a few drinks in the last week. Did not appear intoxicated or and not notice she smell of alcohol at this point. I suspect that she is not very likely to have withdrawal if she is indeed only having the she describes over the course of recent past. Will watch closely and initiate CIWA protocol if indicated. Time Spent With Patient Time with patient: Greater than 35 minutes
[2019-02-15 20:25] LABS: Bacteria Urine None Seen
[2019-02-15 20:26] LABS: Appearance Urine UA CLEAR; Bilirubin Urine UA NEGATIVE (NEGATIVE); Color Urine UA YELLOW; Glucose Urine UA NEGATIVE (Negative); Ketones Urine UA TRACE (NEGATIVE); Leukocyte Esterase Urine UA NEGATIVE (NEGATIVE); Nitrite Urine UA NEGATIVE (Negative); Occult Blood Urine UA NEGATIVE (Negative); Protein Urine UA TRACE (Negative); Urobilinogen Urine UA 0.2 E.U./dL (0.2)
[2019-02-15 20:30] LABS: pH Urine UA 5.5 (4.5-8.0)
[2019-02-15 20:31] LABS: RBC Urine 0-1/HPF (0-5/HPF); WBC Urine 1-5/HPF (0-5/HPF)
[2019-02-15 20:32] LABS: Culture Indicated Urine Cult Not Indicated; Mucus Urine 1+ (Negative); Squamous Epithelial Cell Urine 0-1 /HPF (0-5/HPF); Transitional Epi Cells Urine 0-1/HPF (0-5/HPF)
[2019-02-15] MEDS: SERTRALINE 50 MG TABLET PO (22:18)
[2019-02-15] MEDS: KETOROLAC 15 MG/ML VIAL IV (22:18)
--- NOTE | 2019-02-15 22:36 | PC.NURSE ---
Admission/Evening Shift Note- Patientarrived to reychase from ER at 1750. slider sheet used to transfer patient from stretcher to bed. Patient alert and oriented and able to make needs known to staff. Admission questions done, home medications reviewed, and physicalassessment completed. Tyler placed and urine sample sent to lab.Oriented patient to bed and bed controls, room, lights, phone, menu, and call pruitt/tv remote. IV line placed, patient tolerated without issue. safety measures in place. bed alarm activated. call pruitt and phone within reach. will continue to monitor.
[2019-02-16] VITALS (7 sets, daily range): BP systolic 118–185; BP diastolic 74–97; PULSE 63–95; RESP 16–20; TEMP 36.1–37.2; O2SAT 96–99
--- NOTE | 2019-02-16 05:15 | PC.NURSE ---
Addendum entered by Vickey Bills R.N. 02/16/19 06:56: Patient potassium level 3.3, DR. Pagan notified. Dr. Pagan ordered 20 MEQ potassium 2x daily. I also asked for an order of tylenol and ibuprofen. Dr. Pagan ordered 2 tab 325mg Q4-6 hrs, and 2 tablets 200mg of ibuprofen Q4-6 hrs. Original Note: Patient repositioned Q2 hours, VSS, denies pain. CMS is intact. SCD's applied, bed is low and locked, call light within reach.
[2019-02-16 05:18] LABS: BUN Creatinine Ratio 42.5 (6-22); Blood Urea Nitrogen 34 mg/dL (7-17); Calcium 9.4 mg/dL (8.4-10.2); Carbon Dioxide 23 mmol/L (22-32); Chloride 101 mmol/L (98-107); Estimated Glomerular Filt Rate > 60.0 mL/min (>60); Glucose 124 mg/dL (80-110); HEMOLYSIS < 15 (0-50); Potassium 3.3 mmol/L (3.4-5.1); Sodium 135 mmol/L (137-145)
[2019-02-16] MEDS: CYCLOBENZAPRINE 5 MG TABLET PO ×3 (05:46→23:42)
[2019-02-16] MEDS: LEVOTHYROXINE 112 MCG TABLET 56 MCG PO (05:47)
[2019-02-16] MEDS: POTASSIUM CHLORIDE 20 MEQ TAB PO ×2 (09:37→17:26)
[2019-02-16] MEDS: IBUPROFEN 400 MG TABLET PO ×2 (09:37→18:29)
[2019-02-16] MEDS: ACETAMINOPHEN 325 MG TABLET 650 MG PO ×2 (09:38→18:28)
--- NOTE | 2019-02-16 09:53 | PT.IPTN ---
Physical Therapy Treatment Note M2 PT-IP Current Condition Start: 02/15/19 13:52 Freq: Status: Active Protocol: Document 02/15/19 16:45 AW (Rec: 02/15/19 17:13 AW [id number]) Physical Therapy Current Condition Current Condition Evaluation Date 02/15/19 Treatment Diagnosis sacral insufficiency fractures , difficulty in walking Onset Date 02/10/19 Weight Bearing Status Weight Bearing Status Weight Bear as Tolerated Allowed Weight Bearing Amount (enter % Per Dr. Donaldson, Dr. Malin or #) (%) consulted and recommended WBAT with assistive device. M3 PT-IP Subjective Start: 02/15/19 13:52 Freq: Status: Active Protocol: Document 02/16/19 09:53 CLB (Rec: 02/16/19 10:33 CLB [id number]) Subjective Physical Therapy Visit Type Type Treatment Note Visit Start Time 09:53 Visit Stop Time 10:21 Total Visit Minutes 28 Number of SALES FORECAST ANALYST Visits 1 Physical Therapy Visit Comments Patient Comments I want to get up, I don't want to go to rehab Patient Goals To go home as soon as possible Therapy Pain Assessment Pain When Pain Assessed During Mobility Pain Present Pain Present Pain Reported Location R hip Intensity 10 Scale Used 1/10 at rest Description Acute,Sharp,Shooting Pain Behaviors Calling Out,Facial Grimacing, Guarding,Restlessness,Wincing Pain Management Techniques Distraction,Modification of Treatment,Re-positioning M4 PT-IP Mobility and Gait Start: 02/15/19 13:52 Freq: Status: Active Protocol: Document 02/16/19 09:53 CLB (Rec: 02/16/19 10:33 CLB [id number]) PT-Bed Mobility Assessment Rolling Type of Rolling Roll to Left PT-Transfer Assessment Comments Mobility Comments Pt unable to come to full seated position after 4 attempts due to pain. Pt required Mod A to get legs back into bed and positioned for comfort in bed. Pt requested to try again later after she has another dose of pain meds. Pt's present during tx. Pt left in bed with all needs within reach. Gait Assessment Comments Gait Comments Unable due to increased pain with attempt to sit. M5 PT-IP Objective Assessments Start: 02/15/19 13:52 Freq: Status: Active Protocol: Document 02/15/19 16:45 AW (Rec: 02/15/19 17:13 AW [id number]) Orientation Orientation/Cognition Level of Alertness Alert Orientation Name,Day of Week,Place, Situation Language Function Ability No Deficits Noted Safety Awareness Understands Safety Issues Memory Description No Deficits Noted Gross Range of Motion Upper Extremity ROM Assessment Left Impaired Impairments Remote history of left proximal humerus fracture ( 2008) Lower Extremity ROM Assessment Bilaterally Impaired Impairments Due to pain Strength Lower Extremity Strength Assessment Bilaterally Impaired Hip 3+/5 Knee 4/5 Ankle 4+/5 Comments Strength Comments Strength assessment limited due to report of hip pain (R>L ) with resisted movement Coordination Assessment Gross Coordination Gross Coordination WNL Sensation Assessment Sensation Gross Sensation WNL M6 PT-IP Treatment Start: 02/15/19 13:52 Freq: Status: Active Protocol: Document 02/16/19 09:53 CLB (Rec: 02/16/19 10:33 CLB [id number]) Physical Therapy Treatment Exercises Exercises Ankle Pumps,Gluteal Sets,Quad Sets,Heel Slides Education Education Provided Precautions,Weight Bearing Status,Safety M7 PT-IP Assessment and Plan Start: 02/15/19 13:52 Freq: Status: Active Protocol: Document 02/16/19 09:53 CLB (Rec: 02/16/19 10:33 CLB [id number]) PT Summary Assessment and Plan Summary Assessment Summary Pt unable to get to seated positon due to pain and requested to return to supine after 4 attempts to sit on EOB . Pt reports 10/10 pain with mobility and 1/10 pain during ther ex. Pt required Mod A to get LE's into bed and get to HOB. PT discharge recommendation is tentatively for home with assistance and outpatient PT but will need to continue assessment once pain is better managed. Goals Bed Mobility Goal Standby Assistance Transfer Goal Standby Assistance,Front Wheeled Walker Gait Goal Standby Assistance,Front Wheel Walker Gait Distance 100 Other Goals - up/down 8 steps with unilateral railing CGA Days to Meet Goals 5 Frequency of Treatment Frequency Of Treatment Twice a Day Treatment Plan Physical Therapy Treatment Plan Bed Mobility Training,Transfer Training,Gait Training, Therapeutic Exercise,Balance Retraining,Discharge Planning, Hot or Cold Pack Other Recommendations and Next Treatment bed mobility, transfers, gait, Focus trial stairs if able Recommendations To Nursing Amount of Assist Needed 1 Person Assist Discharge Recommendations PT Discharge Recommendations Home with Assistance,Home Health Other Discharge Recommendations Will continue to assess Equipment Needed for Home Before FWW for home use Discharge
--- NOTE | 2019-02-16 09:59 | CM.DANOTE ---
Addendum entered by Paula Edwards LPN 02/16/19 16:14: Yoni/rick is updated via phone discussion now. Addendum entered by Paula Edwards LPN 02/16/19 16:01: Spoke with PT Berenice after she completed afternoon session with pt. She is recommending snf setting. Note is faxed now to [place] BUBBA Panchal who will be working until 1800 today. Have not heard back from [facility] yet about bed availability. P: [facility] 02/18 if stable for snf setting and and auth in place by [place]. (expected) Addendum entered by Paula Edwards LPN 02/16/19 12:50: Met with pt as planned, introduced self and role. Pt confirms her has gone home and will return about 1730. She does admit my has been worried sick about how he will take care of me at home. He has a bad shoulder and he could not do any physical lifting.. She also notes that her bed is very high and hard to get in and out of at baseline. She had been thinking she might try a step-ladder to get into it and just slide out of it in the morning but clearly this would not at this time be safe. Pt is also concerned about the stairs she would need to climb. Pain, especially when sitting, is very much a problem. Voiding: pt confirms that she did leak a bit like you do as you get older but as soon as she hit the floor after fallling this increased greatly and I just start going, I don't know when I have to go. I have this catheter in now. Discussed d/c issues and options. Pt initially said she wanted to avoid a half-way rehab stay as her mother was in one long ago but as the conversation unfolded it became clear to pt and to this sc production control planner that a plan for home, even with HH services, would not be best. SNF agency list: discussed: [place] sn[facility]: [facility]: preferred by pt. [facility] is other [place] [facility] in [facility]. Agreed to call [place] CM dept to discuss the possibility of a snf auth before home. Spoke with BUBBA Panchal and presented the case. She noted that she had not yet reviewed the [facility] clinical but would be looking for it. She stated that the [place] policy was such that if a pt had a fall with a fracture which was causing pain and limiting function and mobility and with the need for PT/OT a snf authorization was going to be approved. She said the [place] dept was closed on 02/17 so final approval would not be until 1226. Agreed to try to get an accepting snf for today and would fax appropriate documentation to the [facility] fax: [phone]. Have given referral now to [facility] admissions liaison Candace via phone discussion and efax. Have left a for [facility] liaison and will fax over the referral now. Will update pt and have discussed with MARION Bejarano who will see pt again this afternoon. P: at this point: snf as per above and likely on 02/18 or when stable for same. Pt is updated. Original Note: Discharge Planning/Care Management DCP: assessment: case received, EMR reviewed. Discussed in Team Rounds. Pt is a 74 year old female who admitted yesterday evening to care of PCP: Dr. Pagan. Orthpedics: Dr. Malin consulted/no consult note is yet available. Recommended WBAT with use of a w/c. Payer: [employer]. Admission status: in review: per [facility] NIKUNJ Gupta PT did see pt in the ER. Therapy rep in Rounds notes that OT eval would be very helpful in the full assessment of pt's current needs. Order for same/obtained. Will meet with pt and her and follow accordingly. It is noted that CT shows bilateral sacral fractures, pt has been crawling around on the floor since her fall 5 days ago and she was functionally independent with use of cane prior to this event. Is also noted that pt drinks 3+ alcoholic drinks per day. P: meet with her and her and follow closely for d/c issues/options. CM Discharge Assessment Start: 02/16/19 09:50 Freq: Status: Active Protocol: Document 02/16/19 09:51 ITV (Rec: 02/16/19 09:56 ITV [id number]) Discharge Planning Assessment Advance Directives? No History Provided By Patient Prior Living Arrangements House Household Members spouse Document 02/16/19 09:55 ITV (Rec: 02/16/19 09:56 ITV [id number]) Discharge Planning Assessment Advance Directives? No History Provided By Medical Record Prior Living Arrangements House Household Members spouse Type of transpotration used prior to Drives own vehicle admit DME Already Rented / Owned Cane Comment uses hurrycane for all mobility at baseline Review Status In Process
--- NOTE | 2019-02-16 10:23 | OT.IP.EVAL ---
Past Medical History (Last Updated 02/15/19 @ 11:38 by Heather Lynne RN) Hypothyroid (Acute) Patient denies medical problems (Acute) Occupational Therapy Inpatient Evaluation/Re-Eval M1 PT/OT-IP Prior Functional Status Start: 02/16/19 11:16 Freq: NEEDED Status: Active Protocol: Document 02/16/19 10:23 [facility] (Rec: 02/16/19 11:47 [facility] [id number]) Medical Review Prior Functional Status Medical History Reviewed Yes Communication WNL Mobility and Gait Modified independent with use of hurrycane at all times Activities of Daily Living and IADL's Independent including driving Social History Household Members spouse Living Arrangements House Number of Floors (Floors) Two Floors Number of Stairs To Enter/Railing? Per PT eval: 8 BUCKY with wide bilateral rails (can only use one at a time). Pt and her spouse live on the entry processor without need to access second floor. There is a back entrance with only 2 steps, but can only be accessed by traversing uneven ground. Home Environment Standard Height Toilet,Tub/ Shower Doors Home Equipment Quad Cane,Crutches,Grab Bars In Shower Employment Status Retired Additional Social History Comment Pt lives with her spouse. Both are retired. Her is available and able to assist as needed. M2 OT-IP Current Condition Start: 02/16/19 11:16 Freq: Status: Active Protocol: Document 02/16/19 10:23 [facility] (Rec: 02/16/19 11:47 [facility] [id number]) Occupational Therapy Current Condition Current Condition Evaluation Date 02/16/19 Treatment Diagnosis Bilateral Sacral Insufficiency fracture, decreased mobility Diagnosis Onset Date 02/15/19 Weight Bearing Status Weight Bearing Status Weight Bear as Tolerated Allowed Weight Bearing Amount (enter % Use of assistive device. or #) (%) M3 OT- IP Subjective and Pain Start: 02/16/19 11:16 Freq: Status: Active Protocol: Document 02/16/19 10:23 [facility] (Rec: 02/16/19 11:47 [facility] [id number]) OT- Subjective Occupational Therapy Visit Type Type Initial Evaluation Visit Start Time 10:23 Visit Stop Time 11:15 Total Visit Minutes 52 Occupational Therapy Visit Comments Patient Comments Pt's present initially during OT eval and pt agreed to try to get up. Patient/Caregiver Goals To go home. OT Pain Assessment Pain When Pain Assessed At Rest Pain Present Pain Present Denied Pain M4 OT- IP ADL's Start: 02/16/19 11:16 Freq: Status: Active Protocol: Document 02/16/19 10:23 [facility] (Rec: 02/16/19 11:47 [facility] [id number]) OT [id number] Comments OT Self-Feeding Comments Not at meal time, encouraged pt to have HOB up or sit into recliner to eat due increase ease for digestion and prevent from aspiration pneumonia. OT ADL-Grooming General Evaluation Grooming Ability Standby Assistance Areas Needing Assistance Retrieving/Set-up of Grooming Items Comments OT Grooming Comments Pt able to stand at sink with FWW and one hand on the sink for balance to be able to do all grooming needs while standing. OT ADL-Oral Care General Eval Oral Care Ability Independent OT ADL-Dressing General Eval Lower Body Dressing Ability Standby Assistance Areas Needing Assistance Retrieving/Set-up of Clothing Comments OT Dressing Comments Pt able to do LB dressing in supine due to too much pain to try while sitting. Pt just needing assist to help ruba catheter bag through the pant leg. OT ADL-Toileting General Evaluation Toileting Ability Total Assistance Comments OT Toileting Comments [place] in place. Pt states not able to tell when she has to go at this time. Educated pt on use of BSC versus just changing out brief while in bed. M5 OT- IP IADL's Start: 02/16/19 11:16 Freq: Status: Active Protocol: Document 02/16/19 10:23 [facility] (Rec: 02/16/19 11:47 [facility] [id number]) OT-Instrumental Activities of Daily Living Home Safety Awareness Awareness of Need for Assistance at Home Good Awareness Meal Preparation Meal Preparation Caregiver Provides Assist Resp Therapist Resp Therapist Caregiver Provides Assist Driving Driving Caregiver Provides Assist M6 OT- IP Functional Cognition Start: 02/16/19 11:16 Freq: Status: Active Protocol: Document 02/16/19 10:23 [facility] (Rec: 02/16/19 11:47 [facility] [email or web address]) Cognitive Factors Limiting Selfcare Function Cognitive Ability Level of Alertness Alert Patient Orientation Name,Place,Situation Attention Span Ability Capable of Focused Attention, Capable of Sustained Attention Ability to Follow Commands Able to Follow Multi-Step Commands Memory Description No Deficits Noted Problem Solving Ability Needs Assist to Identify Solutions Cognitive Comments Cognitive Assessment Comments Pt needing education for FWW use to push down on arm rests more to help unweight her RLE due to complains on right LE more when up on her feet. OT- Vision and Hearing OT- Hearing Assessment OT- Hearing Assessment WFL OT- Vision Assessment Visual Acuity Glasses All The Time M7 OT- IP Mobility and Balance Start: 02/16/19 11:16 Freq: Status: Active Protocol: Document 02/16/19 10:23 [facility] (Rec: 02/16/19 11:47 [facility] [id number]) OT- Bed Mobility Assessment Rolling Type of Rolling Roll to Right,Roll to Left Level of Assistance Standby Assistance,Bedrails Supine to Sit Supine to Sit Assist Moderate Assistance,1 Person Assistance Sit to Supine Sit to Supine Assist Contact Guard Assistance,1 Person Assistance Scooting Scooting to Edge of Bed Moderate Assistance OT-Transfer Assessment Sit to and From Stand Sit to and from Stand Moderate Assistance Transfers Transfer Ability Contact Guard Assistance,1 Person Assistance Technique Transfer Destination Bed Transfer Technique Stand Step Pivot Devices Transfer Assistive Devices Gait Belt,Front Wheeled Walker Comments Mobility Comments Pt able to roll side to side in the bed for dressing needs and MODA to help get to hips over to the edge of the bed. MODA to get upright. Pt tends to lean to the left and posteriorly due to pain and needing MODA to stand to FWW. Once up to FWW able to move with SBA to CGA. OT- Balance Assessment Sitting Balance and Reactions Static Sitting Balance Ability Poor Dynamic Sitting Balance Ability Poor Standing Balance and Reactions Static Standing Balance Ability Fair Dynamic Standing Balance Ability Poor M8 OT- IP Objective Assessments Start: 02/16/19 11:16 Freq: Status: Active Protocol: Document 02/16/19 10:23 [facility] (Rec: 02/16/19 11:47 [facility] [id number]) OT Gross Range of Motion Upper Extremity Range of Motion Assessment Right Impaired ROM Impairments LUE WFL, RUE 0-100 for shoulder flexion. OT Strength Comments Strength Comments RUE 4/5, LUE 4-/5 OT- Coordination Assessment Comments Coordination Comments Pt decreased for FMS, needing assist to open items for grooming needs. M9 OT- IP Assessment and Plan Start: 02/16/19 11:16 Freq: Status: Active Protocol: Document 02/16/19 10:23 [facility] (Rec: 02/16/19 11:47 [facility] [email or web address]) OT Summary Assessment and Plan Potential Rehabilitation Potential Good Analytic Complexity at Evaluation Low Summary OT Impairments Pain,Strength,Functional Mobility,Dressing,Toileting, Bathing,Toilet Transfers, Shower Transfers Progress Towards Goals Progressing Toward Goals,Slow Progress due to Pain Assessment Summary Pt main barriers are steps and pain at this time. Pt issued sport shoe spike assembler to assist with LB dressing needs. Pt able to dressing while in the bed as has to much pain in her sacral area while sitting. Suggested instead of brief changes to look into getting a BSC and a tub bench for showering needs. Pt has a supportive . Pt would benefit from home health to help work through needs fo ADl 's and IADl's. Goals Grooming Goal Independent Dressing Goal Independent Toileting Goal Independent Bathing Goal Minimal Assistance Toilet Transfer Goal Independent Shower Transfer Goal Minimal Assistance Patient/Caregiver Education Goal Caregiver Independent Assisting Patient Days to Meet Goals 3 Frequency of Treatment Frequency Of Treatment Once a Day Treatment Plan OT Treatment Plan ADL Training,Functional Mobility,Patient/Family Education,Discharge Planning Other Treatment Recommendations and Next shower Treatment Focus Discharge Recommendations OT Discharge Recommendations Home with Assistance,Home Health Home Equipment Needs BSC, tub bench, FWW
--- NOTE | 2019-02-16 14:11 | PC.NURSE ---
Pt is A&Ox3. Just given flexaril for discomfort. She had tylenlol and ibuprofen earlier. Tried to work with physical therapy but unable to get up from pain. She is very mobile in bed and worked well with occupational therapist. Drinking more water, encouraged as her urine output has not been much. She only put out 150cc last evening. Pt has a bruise to her r.hip. She is lying in bed comfortable at this time.
--- NOTE | 2019-02-16 14:50 | P.PN_ITS ---
Subjective Subjective Date Patient Seen: 02/16/19 Time Patient Seen: 14:50 Interval history: Patient overall feeling well. No major issues or change. Still having significant pain. Unable to move significantly. Has not moved a lot. Exam Vital Signs (past 8 hours): - 02/16/19 08:00 02/16/19 11:31 Temperature 98.5 F 97.9 F Pulse Rate 94 H 71 Respiratory Rate 18 18 Blood Pressure 148/94 H 155/77 H Pulse Oximetry 98 98 Oxygen Delivery Method Room Air Oxygen Flow Rate 0 Narrative Exam Narrative: Alert female sitting comfortably in no acute distress. Lungs are clear. Heart regular rate and rhythm. Abdomen is soft positive bowel sounds nontender. Extremities are unremarkable. Did not roll patient. Skin is unremarkable. Psychologically appropriate interactive. Neurologic exam is nonfocal Objective Labs Result Diagrams: 02/15/19 12:20 02/16/19 04:45 Labs: Laboratory Results - last 24 hr 02/15/19 02/15/19 02/16/19 12:20 20:23 04:45 Sodium 135 L Potassium 3.3 L Chloride 101 Carbon Dioxide 23 BUN 34 H Creatinine 0.80 Estimated GFR > 60.0 BUN/Creatinine Ratio 42.5 H Glucose 124 H Calcium 9.4 TSH 26.40 H Urine Color Yellow Urine Appearance Clear Urine pH 5.5 Ur Specific [place] 1.010 Urine Protein Trace H Urine Glucose (UA) Negative Urine Ketones Trace H Urine Occult Blood Negative Urine Nitrate Negative Urine Bilirubin Negative Urine Urobilinogen 0.2 Ur Leukocyte Esterase Negative Urine RBC 0-1/hpf Urine WBC 1-5/hpf Ur Squamous Epith Cells 0-1 /hpf Ur Transition Epith Cell 0-1/hpf Urine Bacteria None seen Urine Mucus 1+ H Ur Culture Indicated? Cult not indicated Assessment & Plan Assessment & Plan narrative: Sacral fracture. Ground level fall. Patient overall stable. Early in the course. I suspect she'll need at least 2 or 3 more days to get her mobilized and able to function at home. Will see how things go. Re-evaluate in a.m.. Physical therapy consulted. Hypokalemia. Treated today. Will recheck a.m. and see how she does. Follow from there. History of alcohol abuse. No evidence of active alcoholism but on see treatment protocol. No other changes. History of smoking. Not on anything at this time. Will follow. DVT prophylaxis. Patient has been down for 5 days prior to admission and othe rwise will not be actively mobilizing for a few days. Will treat. Toradol has been discontinued sugar should not be an issue. Disposition. Expect 2-3 more days of treatment potential for care home placement depending on response. For rehab
--- NOTE | 2019-02-16 15:06 | PM.PN.1 ---
Subjective Subjective Date Patient Seen: 02/16/19 Time Patient Seen: 15:06 Exam Vital Signs (past 8 hours): - 02/16/19 08:00 02/16/19 11:31 Temperature 98.5 F 97.9 F Pulse Rate 94 H 71 Respiratory Rate 18 18 Blood Pressure 148/94 H 155/77 H Pulse Oximetry 98 98 Oxygen Delivery Method Room Air Oxygen Flow Rate 0 Objective Labs Result Diagrams: 02/15/19 12:20 02/16/19 04:45 Labs: Laboratory Results - last 24 hr 02/15/19 02/15/19 02/16/19 12:20 20:23 04:45 Sodium 135 L Potassium 3.3 L Chloride 101 Carbon Dioxide 23 BUN 34 H Creatinine 0.80 Estimated GFR > 60.0 BUN/Creatinine Ratio 42.5 H Glucose 124 H Calcium 9.4 TSH 26.40 H Urine Color Yellow Urine Appearance Clear Urine pH 5.5 Ur Specific [place] 1.010 Urine Protein Trace H Urine Glucose (UA) Negative Urine Ketones Trace H Urine Occult Blood Negative Urine Nitrate Negative Urine Bilirubin Negative Urine Urobilinogen 0.2 Ur Leukocyte Esterase Negative Urine RBC 0-1/hpf Urine WBC 1-5/hpf Ur Squamous Epith Cells 0-1 /hpf Ur Transition Epith Cell 0-1/hpf Urine Bacteria None seen Urine Mucus 1+ H Ur Culture Indicated? Cult not indicated
--- NOTE | 2019-02-16 15:11 | PT.IPTN ---
Physical Therapy Treatment Note M2 PT-IP Current Condition Start: 02/15/19 13:52 Freq: Status: Active Protocol: Document 02/15/19 16:45 AW (Rec: 02/15/19 17:13 AW [id number]) Physical Therapy Current Condition Current Condition Evaluation Date 02/15/19 Treatment Diagnosis sacral insufficiency fractures , difficulty in walking Onset Date 02/10/19 Weight Bearing Status Weight Bearing Status Weight Bear as Tolerated Allowed Weight Bearing Amount (enter % Per Dr. Donaldson, Dr. Malin or #) (%) consulted and recommended WBAT with assistive device. M3 PT-IP Subjective Start: 02/15/19 13:52 Freq: Status: Active Protocol: Document 02/16/19 14:56 AW (Rec: 02/16/19 15:11 AW [email or web address]) Subjective Physical Therapy Visit Type Type Treatment Note Visit Start Time 14:30 Visit Stop Time 14:50 Total Visit Minutes 20 Physical Therapy Visit Comments Patient Comments I understand I might need to go to SNF for rehab. Therapy Pain Assessment Pain When Pain Assessed At Rest Pain Present Pain Present Denied Pain Location R hip Intensity 9 Description Aching Pain Management Techniques Apply Cold,Distraction, Modification of Treatment,Re- positioning M4 PT-IP Mobility and Gait Start: 02/15/19 13:52 Freq: Status: Active Protocol: Document 02/16/19 14:56 AW (Rec: 02/16/19 15:11 AW [email or web address]) PT-Bed Mobility Assessment Supine to Sit Supine to Sit Moderate Assistance,1 Person Assistance Scooting Scooting to Edge of Bed Minimal Assistance PT-Transfer Assessment Sit to and From Stand Sit to and from Stand Minimal Assistance,1 Person Assistance,Use of Upper Extremities Equipment Transfer Assistive Device Gait Belt,Front Wheeled Walker Orthotic/Prosthetic Devices or Brace: No Transfers Transfer Destination Chair Transfer Technique pt ambulated with FWW Transfer Ability Level of Assist Contact Guard Assistance,1 Person Assistance Comments Mobility Comments Pt unsuccessfully attempted supine to sit transfer without assist. She required mod A x 1 using the draw sheet to pivot her hips toward EOB and min A x 1 to scoot. She completed sit to stand using FWW min A x 1. After gait training, she transferred to the bedside chair with waffle cushion pre-positioned. Pt was set up in the chair with call light in reach and MANUFACTURERS SERVICE REPRESENTATIVE attending. Gait Assessment Gait Gait Assistance Required: Contact Guard Assist Distance (Feet) 100 Able to Maintain Weight Bearing Status Yes During Gait Assistive Devices Assistive Device Gait Belt,Front Wheeled Walker Orthotic/Prosthetic Devices or Brace: No Gait Deviations General Gait Pattern Antalgic,Decreased Stride Length,Decreased Feet Clearance,Flexed Trunk,Step-to Gait Factors Limiting Gait Function Factors Limiting Gait Function Decreased Activity Tolerance, Decreased Strength,Pain Comments Gait Comments Pt ambulated in the halls using FWW CGA with increased weightbearing R LE compared with yesterday but still offloading significantly using B UE. Pt reported 9/10 pain with mobility. Stair Climbing Assessment Comments Stair Climbing Comments Not assessed. M5 PT-IP Objective Assessments Start: 02/15/19 13:52 Freq: Status: Active Protocol: Document 02/15/19 16:45 AW (Rec: 02/15/19 17:13 AW [id number]) Orientation Orientation/Cognition Level of Alertness Alert Orientation Name,Day of Week,Place, Situation Language Function Ability No Deficits Noted Safety Awareness Understands Safety Issues Memory Description No Deficits Noted Gross Range of Motion Upper Extremity ROM Assessment Left Impaired Impairments Remote history of left proximal humerus fracture ( 2008) Lower Extremity ROM Assessment Bilaterally Impaired Impairments Due to pain Strength Lower Extremity Strength Assessment Bilaterally Impaired Hip 3+/5 Knee 4/5 Ankle 4+/5 Comments Strength Comments Strength assessment limited due to report of hip pain (R>L ) with resisted movement Coordination Assessment Gross Coordination Gross Coordination WNL Sensation Assessment Sensation Gross Sensation WNL M6 PT-IP Treatment Start: 02/15/19 13:52 Freq: Status: Active Protocol: Document 02/16/19 14:56 AW (Rec: 02/16/19 15:11 AW [email or web address]) Physical Therapy Treatment Exercises Exercises Ankle Pumps,Gluteal Sets,Quad Sets,Heel Slides Education Education Provided Precautions,Weight Bearing Status,Safety Other Treatments Other Treatment Performed Provided education on benefits of mobility and staying upright as tolerated for improved integumentary and pulmonary health. M7 PT-IP Assessment and Plan Start: 02/15/19 13:52 Freq: Status: Active Protocol: Document 02/16/19 14:56 AW (Rec: 02/16/19 15:11 AW [email or web address]) PT Summary Assessment and Plan Summary Impairments Pain,ROM,Strength,Bed Mobility ,Transfers,Gait,Activity Tolerance Assessment Summary Pt continued to require min to mod assist with all position changes due to highly irritable pain symptoms which are limiting her functional mobility. She did progress her gait distance significantly but required CGA for safety due to balance challenges and unpredictable nature of pain onset which compromised her balance. Due to her increased need for assist and her spouse 's inability to provide physical assist, pt requires SNF rehab at discharge to improve strength, balance, and independence with mobility. Goals Bed Mobility Goal Standby Assistance Transfer Goal Standby Assistance,Front Wheeled Walker Gait Goal Standby Assistance,Front Wheel Walker Gait Distance 100 Other Goals - up/down 8 steps with unilateral railing CGA Days to Meet Goals 5 Frequency of Treatment Frequency Of Treatment Twice a Day Treatment Plan Physical Therapy Treatment Plan Bed Mobility Training,Transfer Training,Gait Training, Therapeutic Exercise,Balance Retraining,Discharge Planning, Hot or Cold Pack Other Recommendations and Next Treatment bed mobility, transfers, gait, Focus trial stairs if able Recommendations To Nursing Amount of Assist Needed 1 Person Assist Discharge Recommendations PT Discharge Recommendations SNF Rehab Other Discharge Recommendations SNF vs home with HH. Based on current presentation, pt requires SNF. Equipment Needed for Home Before defer to rehab setting Discharge
[2019-02-16] MEDS: SERTRALINE 50 MG TABLET PO (21:18)
[2019-02-17 05:07] LABS: Blood Urea Nitrogen 21 mg/dL (7-17); Calcium 9.2 mg/dL (8.4-10.2); Carbon Dioxide 23 mmol/L (22-32); Chloride 99 mmol/L (98-107); Estimated Glomerular Filt Rate > 60.0 mL/min (>60); Glucose 106 mg/dL (80-110); HEMOLYSIS < 15 (0-50); Potassium 4.2 mmol/L (3.4-5.1); Sodium 130 mmol/L (137-145)
[2019-02-17] MEDS: LEVOTHYROXINE 112 MCG TABLET 56 MCG PO (05:21)
[2019-02-17 05:59] VITALS: BP 156/87; PULSE 67; RESP 16; TEMP 36.8; O2SAT 96
[2019-02-17 08:00] VITALS: BP 152/86; PULSE 90; RESP 16; TEMP 36.8; O2SAT 97
--- NOTE | 2019-02-17 08:24 | P.PN_ITS ---
Subjective Subjective Date Patient Seen: 02/17/19 Time Patient Seen: 08:24 Interval history: Patient had relatively good day yesterday. Was able to walk some. With help. Only able to sit in chair for about 5 minutes. Pain is otherwise well controlled. No shortness of breath. No chest pain. Feeling well otherwise. No evidence of withdrawal. Exam Vital Signs (past 8 hours): - 02/17/19 05:59 Temperature 98.3 F Pulse Rate 67 Respiratory Rate 16 Blood Pressure 156/87 H Pulse Oximetry 96 Oxygen Delivery Method Room Air Oxygen Flow Rate 0 Narrative Exam Narrative: Alert female no acute distress Lungs are clear. Heart regular rate and rhythm. Abdomen is benign. E xtremities without cyanosis clubbing edema. Objective Labs Result Diagrams: 02/15/19 12:20 02/17/19 04:40 Labs: Laboratory Results - last 24 hr 02/17/19 04:40 Sodium 130 L Potassium 4.2 Chloride 99 Carbon Dioxide 23 BUN 21 H Creatinine 0.70 Estimated GFR > 60.0 BUN/Creatinine Ratio 30.0 H Glucose 106 Calcium 9.2 Assessment & Plan Assessment & Plan narrative: Sacral fracture. Slow improvement. Some mobilization yesterday. Expect will need to go for rehab before home. We'll see how the next 24 hours goes. Discussed with care management. Indwelling Tyler. Will keep in today with limited mobility but will need to be discontinued before discharge. Hypokalemia numbers are normal today. Will recheck 1 more day to make sure stable. History of alcohol abuse no evidence of withdrawal will continue to follow. History of smoking. Stable at this time. Recommend quitting. Patient not real motivated at this time DVT prophylaxis on Lovenox. Disposition. Probable discharge tomorrow. I expect will go to sniff. But will re-evaluate in a.m..
[2019-02-17] MEDS: ENOXAPARIN 40 MG/0.4 ML SYRINGE SUBCUT (08:30)
[2019-02-17] MEDS: CYCLOBENZAPRINE 5 MG TABLET PO ×2 (08:30→19:10)
[2019-02-17] MEDS: POTASSIUM CHLORIDE 20 MEQ TAB PO ×2 (08:30→17:58)
[2019-02-17] MEDS: ACETAMINOPHEN 325 MG TABLET 650 MG PO ×3 (08:30→19:10)
--- NOTE | 2019-02-17 09:33 | PT.IPTN ---
Physical Therapy Treatment Note M2 PT-IP Current Condition Start: 02/15/19 13:52 Freq: Status: Active Protocol: Document 02/15/19 16:45 AW (Rec: 02/15/19 17:13 AW [id number]) Physical Therapy Current Condition Current Condition Evaluation Date 02/15/19 Treatment Diagnosis sacral insufficiency fractures , difficulty in walking Onset Date 02/10/19 Weight Bearing Status Weight Bearing Status Weight Bear as Tolerated Allowed Weight Bearing Amount (enter % Per Dr. Donaldson, Dr. Malin or #) (%) consulted and recommended WBAT with assistive device. M3 PT-IP Subjective Start: 02/15/19 13:52 Freq: Status: Active Protocol: Document 02/17/19 09:05 SP (Rec: 02/17/19 11:14 SP [id number]) Subjective Physical Therapy Visit Type Type Treatment Note Visit Start Time 09:05 Visit Stop Time 09:33 Total Visit Minutes 28 Number of PYROGLAZER Visits 1 Physical Therapy Visit Comments Patient Comments I am want to get up and move around, hoping am stronger today but realize I might need to go to SNF for rehab because my can't help me. Pt willing to work with PT. Therapy Pain Assessment Pain When Pain Assessed At Rest Pain Present Pain Present Pain Reported Location R hip Intensity 4 Scale Used 4/10 at rest, 81/0 with mobility Description Aching,Pressure,Spasm, Throbbing Pain Behaviors Facial Grimacing,Holding Area, Moaning Pain Management Techniques Re-positioning,Timing of Activity with Medications M4 PT-IP Mobility and Gait Start: 02/15/19 13:52 Freq: Status: Active Protocol: Document 02/17/19 09:05 SP (Rec: 02/17/19 11:14 SP [id number]) PT-Bed Mobility Assessment Rolling Type of Rolling Roll to Right,Roll to Left Level of Assist Minimal Assistance Supine to Sit Supine to Sit Moderate Assistance,1 Person Assistance,Bedrails Sit to Supine Sit to Supine Contact Guard Assistance,1 Person Assistance,Bedrails Scooting Scooting to Edge of Bed Contact Guard Assistance PT-Transfer Assessment Sit to and From Stand Sit to and from Stand Contact Guard Assistance,1 Person Assistance,Use of Upper Extremities Equipment Transfer Assistive Device Gait Belt,Front Wheeled Walker Orthotic/Prosthetic Devices or Brace: No Transfers Transfer Destination Bed,Chair Transfer Technique Pt ambulated with FWW Transfer Ability Level of Assist Contact Guard Assistance,1 Person Assistance,Use of Upper Extremities Comments Mobility Comments Pt was laying in bed when arrived to PT. Pt was able to complete rolling R and L with 15% A while using bed rails to remove pillow supported under pelvis with HOB flat, completed supine to sitting with HOB flat (trialed assimulate home) requiring Mod A x1 for trunk righting and TENON MACHINE OPERATOR of therapist arm to pull from to complete to sitting, mod cues for BUE placement to push from bed, she was able to get her legs to EOB herself. Pt was able to scoot to EOB and sit to stand CGA, cued for BUE push up from bed and not use of FWW for safety. Pt was stable in standing and able to step pivot to chair 4 step using FWW CGA. Pt required cuing for keeping body within FWW and backing up to chair until feel chair behind knees then reaching back with slow descent for safe transfer. Pt was able to ambulate using FWW and requested to go back to bed upon return. PYROGLAZER educated to sit toward HOB near rails to decrease need for scooting up in bed Min A due to grabbing therapist arm while using bed rail to scoot up EOB , tried to redirect BUE on bed for increased independence. Pt was able to complete sitting to supine CGA and cuing for repositioning herself in middle of bed for safety. Pt required multiple attempts for pelvic clearance of bridge to complete and requested pillow replacement under ischial tuberosities and knees for comfort. Pt reported pain increase 4/10 to 8/10 during mobility but able to complete. Pt was laying in bed and had all needs and within reach when left. Gait Assessment Gait Gait Assistance Required: Contact Guard Assist Distance (Feet) 250 Able to Maintain Weight Bearing Status Yes During Gait Assistive Devices Assistive Device Gait Belt,Front Wheeled Walker Orthotic/Prosthetic Devices or Brace: No Gait Deviations General Gait Pattern Antalgic,Decreased Stride Length,Decreased Feet Clearance,Flexed Trunk,Narrow Based Gait,Step-to Gait Factors Limiting Gait Function Factors Limiting Gait Function Decreased Activity Tolerance, Decreased Strength,Pain Comments Gait Comments Pt was able to increase distance durign ambulation this treatment. Pt was able to ambulate 250 ft CGA using fWW from chair to stairs and back to bed requiring 3 stop standing rests secondary to pain, decreased strength and activity tolerance. Pt demonstrated step to gait initially then was able to complete step over step patterning with report of increased pain 8/10 as distance progressed after stairs. Occasional cuing for upright posture and body closer to FWW for safety and energy conservation. Stair Climbing Assessment Evaluation Level of Assist On Stairs Moderate Assistance,1 Person Assistance Devices Stair Climbing Assistive Devices Right Railing Technique/Endurance Stair Climbing Direction Ascend and Descend Stair Climbing Technique Step to Step Number of Steps Climbed 3 Stair Climbing Set # Repetitions (reps) 1 Comments Stair Climbing Comments Pt was able to complete ascend /descend 4 steps step to gait patterninig using R HR and TENON MACHINE OPERATOR Mod support on L to assimulate cane use at home. Cued for step patterning leading up with LLE stated is her stronger leg and down with RLE. Pt requried rest break at top of stairs to for recovery. No LOB. Will trial SPC during pm treatment for increase independence self support. PT-Balance Assessment Sitting Balance and Reactions Static Sitting Balance Ability Good Dynamic Sitting Balance Ability Good Standing Balance and Reactions Static Standing Balance Ability Good Dynamic Standing Balance Ability Fair M5 PT-IP Objective Assessments Start: 02/15/19 13:52 Freq: Status: Active Protocol: Document 02/15/19 16:45 AW (Rec: 02/15/19 17:13 AW [id number]) Orientation Orientation/Cognition Level of Alertness Alert Orientation Name,Day of Week,Place, Situation Language Function Ability No Deficits Noted Safety Awareness Understands Safety Issues Memory Description No Deficits Noted Gross Range of Motion Upper Extremity ROM Assessment Left Impaired Impairments Remote history of left proximal humerus fracture ( 2008) Lower Extremity ROM Assessment Bilaterally Impaired Impairments Due to pain Strength Lower Extremity Strength Assessment Bilaterally Impaired Hip 3+/5 Knee 4/5 Ankle 4+/5 Comments Strength Comments Strength assessment limited due to report of hip pain (R>L ) with resisted movement Coordination Assessment Gross Coordination Gross Coordination WNL Sensation Assessment Sensation Gross Sensation WNL M6 PT-IP Treatment Start: 02/15/19 13:52 Freq: Status: Active Protocol: Document 02/17/19 09:05 SP (Rec: 02/17/19 11:14 SP [id number]) Physical Therapy Treatment Education Education Provided Precautions,Weight Bearing Status,Safety Other Treatments Other Treatment Performed Provided education on benefits of mobility and staying upright as tolerated for improved integumentary and pulmonary health. M7 PT-IP Assessment and Plan Start: 02/15/19 13:52 Freq: Status: Active Protocol: Document 02/17/19 09:05 SP (Rec: 02/17/19 11:14 SP [id number]) PT Summary Assessment and Plan Potential Rehabilitation Potential Good Status of Condition at Evaluation Evolving Summary Impairments Pain,ROM,Strength,Bed Mobility ,Transfers,Gait,Activity Tolerance Assessment Summary Pt required Mod support during bed mobility supine sit, CGA sit to sup, and CGA during transfer and gait, Mod A durign stair mgt. Cued for safety body positioning closer to FWW and keeping with her during transfer for safety. Pt reqested use of pillows for pelvic propping seated in chair and supien inbed for comfort more under R pelvis than L. Due to highly irritable pain symptoms which are limiting her functional mobility required increased assist for bed mobiliy and stair mgt. Continue to recommend SNF at discharge for assist with increase strength and independence for a safe discharge home. Goals Bed Mobility Goal Standby Assistance Transfer Goal Standby Assistance,Front Wheeled Walker Gait Goal Standby Assistance,Front Wheel Walker Gait Distance 100 Other Goals - up/down 8 steps with unilateral railing CGA Days to Meet Goals 5 Frequency of Treatment Frequency Of Treatment Twice a Day Treatment Plan Physical Therapy Treatment Plan Bed Mobility Training,Transfer Training,Gait Training, Therapeutic Exercise,Balance Retraining,Discharge Planning, Hot or Cold Pack Other Recommendations and Next Treatment bed mobility, transfers, gait, Focus trial stairs if able Recommendations To Nursing Amount of Assist Needed 1 Person Assist Discharge Recommendations PT Discharge Recommendations SNF Rehab Other Discharge Recommendations SNF vs home with HH. Based on current presentation, pt requires SNF. Equipment Needed for Home Before defer to rehab setting Discharge
[2019-02-17 11:05] VITALS: BP 149/88; PULSE 78; RESP 14; TEMP 36.1; O2SAT 97
--- NOTE | 2019-02-17 11:13 | PC.NURSE ---
Pt is doing better today, she states that she got sleep last night. Up and ambulated with Physical Therapy. Tolerated well, did become tired towards the end of her walk. Given flexaril and helpful. Pt is lying in bed and watching television now.
--- NOTE | 2019-02-17 13:14 | CM.DPC ---
Addendum entered by Margarita Polanco R.N. 02/17/19 13:31: TRI done. Original Note: DCP continued: EMR reviewed: Called Desiree at [facility] [phone] and left voice message to check if they can accept the patient for SNF. CM/Rn called Jolie Caruso in [facility] and left a voicemail for them to call back to see if they will accept the patient for SNF. Attempted to contact [facility] today to see if they will approve SNF stay for patient but the case management department is closed for the holiday and are back tomorrow 02/18/2019. CM Department to follow up tomorrow to find SNF placement and talk with [place] for authorization for SNF. Margarita Polanco RN
--- NOTE | 2019-02-17 13:59 | PT.IPTN ---
Physical Therapy Treatment Note M2 PT-IP Current Condition Start: 02/15/19 13:52 Freq: Status: Active Protocol: Document 02/15/19 16:45 AW (Rec: 02/15/19 17:13 AW [id number]) Physical Therapy Current Condition Current Condition Evaluation Date 02/15/19 Treatment Diagnosis sacral insufficiency fractures , difficulty in walking Onset Date 02/10/19 Weight Bearing Status Weight Bearing Status Weight Bear as Tolerated Allowed Weight Bearing Amount (enter % Per Dr. Donaldson, Dr. Malin or #) (%) consulted and recommended WBAT with assistive device. M3 PT-IP Subjective Start: 02/15/19 13:52 Freq: Status: Active Protocol: Document 02/17/19 13:40 SP (Rec: 02/17/19 14:58 SP [id number]) Subjective Physical Therapy Visit Type Type Treatment Note Visit Start Time 13:40 Visit Stop Time 13:59 Total Visit Minutes 19 Number of TESTER SOUND Visits 2 Physical Therapy Visit Comments Patient Comments I am willing to go for a walk but just got back into bed after goind to the bathroom, sacrum is in pain and nurse was on way to get some meds to help. Therapy Pain Assessment Pain When Pain Assessed At Rest Pain Present Pain Present Pain Reported Location R hip Intensity 4 Scale Used 4 at rest and during mobility Description Acute,Pressure,Spasm,Throbbing Pain Behaviors Facial Grimacing,Holding Area, Moaning Pain Management Techniques Re-positioning,Timing of Activity with Medications M4 PT-IP Mobility and Gait Start: 02/15/19 13:52 Freq: Status: Active Protocol: Document 02/17/19 13:40 SP (Rec: 02/17/19 14:58 SP [id number]) PT-Bed Mobility Assessment Rolling Type of Rolling Log Rolling Level of Assist Contact Guard Assistance Supine to Sit Supine to Sit Minimal Assistance,1 Person Assistance,Head of Bed Elevated,Bedrails Sit to Supine Sit to Supine Contact Guard Assistance, Bedrails Scooting Scooting to Edge of Bed Contact Guard Assistance PT-Transfer Assessment Sit to and From Stand Sit to and from Stand Contact Guard Assistance,Use of Upper Extremities Equipment Transfer Assistive Device Gait Belt,Front Wheeled Walker Orthotic/Prosthetic Devices or Brace: No Transfers Transfer Destination Bed Transfer Technique Pt ambulated with FWW Transfer Ability Level of Assist Contact Guard Assistance,1 Person Assistance,Use of Upper Extremities Comments Mobility Comments Pt was laying in bed when arrived, nurse in room and stated she just finished going to the bathroom. Pt was willing to work with PT, stated her pelvis R>L is hurting about strong 4/10 and nurse going to get her some ibuprofen to help pain control . Pt was able to complete rolling (HOB elevated approx 45deg) using bed rail, cued for log roll first then allow legs off bed and pushing BUE on bed to transition trunk righting to sitting, required Min A provided at upper back after 2 unsuccessful attempts. Pt was able to scoot to EOB CGA, she required assistance for catheter feeding through pant leg and Min a for donning pants sitting at EOB, self trunk corrections seated fair dynamic balance 1-2 UE WB on bed during task. Pt was ableto complete sit <> stand CGA at EOB and take a walk in the hallway using FWW for support. Pt was able to complete sitting>supine with demonstration of quick fall backward into bed while swinging legs up into bed. Cued patient for log roll technique to decrease LB and pelvic comfort and safety (HOB flat). Pt stated I needed to lay down quick because of the pain. Pt was able to reposition herself centered in bed with verbal cuing for body awareness and declined pillow positioning or cold pack when done for pain management. Pt was laying down with call light and all needs in reach with 2 visitors in room when left. Gait Assessment Gait Gait Assistance Required: Standby Assistance,Contact Guard Assist Distance (Feet) 280 Able to Maintain Weight Bearing Status Yes During Gait Assistive Devices Assistive Device Gait Belt,Front Wheeled Walker Orthotic/Prosthetic Devices or Brace: No Gait Deviations General Gait Pattern Antalgic,Decreased Stride Length,Decreased Feet Clearance,Flexed Trunk,Narrow Based Gait Factors Limiting Gait Function Factors Limiting Gait Function Decreased Activity Tolerance, Decreased Strength,Pain Comments Gait Comments Pt was able to walk step over step gait patterning down to second ICU sign almost end of hallway and back using FWW SBA on straight away-CGA during turns with w/c follow but not needed. Pt required 3 stop stand brief rest breaks due to pain and decreased endurance and required cuing for body positioning closer to fWW durng turns and obstacle avoidance when walking around end of bed when returned. Pt declined stair mgt this treatment, I don't have the energy and in to much pain to try stairs again, maybe tomorrow. Stair Climbing Assessment Comments Stair Climbing Comments not assessed this afternoon. PT-Balance Assessment Sitting Balance and Reactions Static Sitting Balance Ability Good Dynamic Sitting Balance Ability Fair Standing Balance and Reactions Static Standing Balance Ability Good Dynamic Standing Balance Ability Fair Device Used FWW M5 PT-IP Objective Assessments Start: 02/15/19 13:52 Freq: Status: Active Protocol: Document 02/15/19 16:45 AW (Rec: 02/15/19 17:13 AW [id number]) Orientation Orientation/Cognition Level of Alertness Alert Orientation Name,Day of Week,Place, Situation Language Function Ability No Deficits Noted Safety Awareness Understands Safety Issues Memory Description No Deficits Noted Gross Range of Motion Upper Extremity ROM Assessment Left Impaired Impairments Remote history of left proximal humerus fracture ( 2008) Lower Extremity ROM Assessment Bilaterally Impaired Impairments Due to pain Strength Lower Extremity Strength Assessment Bilaterally Impaired Hip 3+/5 Knee 4/5 Ankle 4+/5 Comments Strength Comments Strength assessment limited due to report of hip pain (R>L ) with resisted movement Coordination Assessment Gross Coordination Gross Coordination WNL Sensation Assessment Sensation Gross Sensation WNL M6 PT-IP Treatment Start: 02/15/19 13:52 Freq: Status: Active Protocol: Document 02/17/19 13:40 SP (Rec: 02/17/19 14:58 SP [id number]) Physical Therapy Treatment Education Education Provided Precautions,Weight Bearing Status,Safety Other Treatments Other Treatment Performed Provided education in slower safe pacing during transfers and body spacial awareness using FWW during gait with obstacle navigation for reduce risk for falls, energy conservation and reduction in pain. M7 PT-IP Assessment and Plan Start: 02/15/19 13:52 Freq: Status: Active Protocol: Document 02/17/19 13:40 SP (Rec: 02/17/19 14:58 SP [id number]) PT Summary Assessment and Plan Potential Rehabilitation Potential Good Status of Condition at Evaluation Evolving Summary Impairments Pain,ROM,Strength,Bed Mobility ,Transfers,Gait,Activity Tolerance Assessment Summary See Mobility comments Pt requried CGA- Min A during mobility. Required cues for increased independence during bed mobility, transfers and safety during gait with slow pacing for energy conservation . Pt was laying in bed with all needs within reach when left. Recommend SNF for discharge for increased further skilled PT education for safety techniques and increased strength/ endurance for prior to DC home. Goals Bed Mobility Goal Standby Assistance Transfer Goal Standby Assistance,Front Wheeled Walker Gait Goal Standby Assistance,Front Wheel Walker Gait Distance 100 Other Goals - up/down 8 steps with unilateral railing CGA Days to Meet Goals 5 Frequency of Treatment Frequency Of Treatment Twice a Day Treatment Plan Physical Therapy Treatment Plan Bed Mobility Training,Transfer Training,Gait Training, Therapeutic Exercise,Balance Retraining,Discharge Planning, Hot or Cold Pack Other Recommendations and Next Treatment bed mobility, transfers, gait, Focus trial stairs R HR/ SPC on L. Recommendations To Nursing Amount of Assist Needed 1 Person Assist Discharge Recommendations PT Discharge Recommendations SNF Rehab Other Discharge Recommendations SNF Equipment Needed for Home Before defer to rehab setting Discharge
[2019-02-17] MEDS: IBUPROFEN 400 MG TABLET PO (15:17)
[2019-02-17 15:24] VITALS: BP 142/84; PULSE 73; RESP 18; TEMP 36.9; O2SAT 97
[2019-02-17 19:52] VITALS: BP 135/79; PULSE 73; RESP 18; TEMP 37.2; O2SAT 97
--- NOTE | 2019-02-17 21:57 | PC.NURSE ---
Shift note: Elizabeth reports minimal pain at rest, rating it at 2 or 3, medicated with tylenol & ibuprofen. When assisted to reposition in bed, when turning to her left side, she yelled out and grabbed her right buttock, reporting sharp pain with movement. Flexeril given for muscle spasms. Taking in good PO's, brought her dinner tonight from their family [employer] party. Tyler patent with clear yellow urine, per MD progress note I will leave in place tonight. IV is saline locked. Patient in good spirits, remains Ox3 and to situation & calling nurse appropriately when has needs. Fall precautions in place for high fall risk, alarm active for safety.
[2019-02-17 23:00] VITALS: BP 152/80; PULSE 81; RESP 18; TEMP 36.2; O2SAT 97
--- NOTE | 2019-02-18 00:11 | PC.NURSE ---
Forensic Engineer Note: 2345: Awake, resting in bed. Vital signs stable. Pt denies pain at this time. Repositioned to lt.
[2019-02-18 05:47] VITALS: BP 143/88; PULSE 72; RESP 16; TEMP 36.6; O2SAT 95
[2019-02-18] MEDS: LEVOTHYROXINE 112 MCG TABLET 56 MCG PO (06:36)
--- NOTE | 2019-02-18 07:46 | CM.DPC ---
Addendum entered by Brandy Crum R.N. 02/18/19 12:26: Spoke to Indy at [facility], to follow up with authorization. Stated that provider reviewed case, and denied. Updated patient, and she stated, it's hard to get 6 stairs to get up, but is not capable of assisting due to his own handicap. Asked her if she could get another family member to assist her, as her niece was just here, and stated, she just left, can't get in touch with her. Called some home health agencies, spoke to Ada at [facility], and stated that P.T. should be able to see her tomorrow in her home. Attempted [facility], but did not call back to verify if they could see her tomorrow. Let patient know, since medically stable, should be discharged today. Brought up $400.00 a day at [facility] if necessary, to pay privately, but stated, she would need to discuss with her . Other option would be ambulance transport to get her into her home. Nurse, Jaclyn, is giving patient pain medication, for she stated, her pain is not controlled at this time. Will continue to work on discharge, for plan at this time is home with home health. As mentioned, [facility] can see patient tomorrow. Addendum entered by Brandy Crum R.N. 02/18/19 10:02: Had conversation with patient regarding [facility], and if they do not authorize, having an alternate plan. Patient is not able to pay daily rate of private pay of $400.00, and option is for her to go home with home health. Her main concern if if she falls, and her can't pick her up. P.T. is continuing to work with her. Spoke to Osmany at [facility], and he stated, if [facility] authorizes, they can accept today. Will not know for the next couple of hours. P.T. mentioned patient is improving, and can do stair training. Will fax over today's note to [facility], and follow up. Dr. Pagan should be here to see patient at approximately 1300. Updated nurse Jaclyn, that this pillowcase cutter needs to see Dr. Pagan today, for discharge update, and have him write orders. Addendum entered by Brandy Crum R.N. 02/18/19 08:14: Spoke to Indy Quarles who is [facility] pillowcase cutter. Stated, it will have to go to doctors for review, because P.T. note indicates she can ambulate 100 feet, and they usually authorize 50 feet. Let her know that yesterday's note was sent. She will review. Will send P.T. note when in. May need to look at other options if skilled is not approved, or discuss private pay. Will collaborate with P.t. team. Original Note: DCP Cont: Left message with [facility] regarding referral, and if they can accept. Went ahead and faxed P.T. notes from yesterday, and day before, to [facility]. Will follow up with phone call, for they are not yet in office. Spoke to Ana at [facility], and stated that Nat will be in to review referral. P: [facility] will work on discharge, and will follow up with [facility] as well. Brandy Crum RN/Fixed Route Operator
[2019-02-18 08:00] VITALS: BP 141/79; PULSE 71; RESP 18; TEMP 36.3; O2SAT 98
[2019-02-18] MEDS: POTASSIUM CHLORIDE 20 MEQ TAB PO (09:02)
[2019-02-18] MEDS: ENOXAPARIN 40 MG/0.4 ML SYRINGE SUBCUT (09:02)
[2019-02-18] MEDS: ACETAMINOPHEN 325 MG TABLET 650 MG PO (09:02)
[2019-02-18] MEDS: ALPRAZolam 0.25 MG TABLET PO (09:03)
[2019-02-18] MEDS: IBUPROFEN 400 MG TABLET PO (09:03)
--- NOTE | 2019-02-18 09:36 | OT.IP.TRT ---
Occupational Therapy Treatment Note M2 OT-IP Current Condition Start: 02/16/19 11:16 Freq: Status: Active Protocol: Document 02/16/19 10:23 [facility] (Rec: 02/16/19 11:47 [facility] [id number]) Occupational Therapy Current Condition Current Condition Evaluation Date 02/16/19 Treatment Diagnosis Bilateral Sacral Insufficiency fracture, decreased mobility Diagnosis Onset Date 02/15/19 Weight Bearing Status Weight Bearing Status Weight Bear as Tolerated Allowed Weight Bearing Amount (enter % Use of assistive device. or #) (%) M3 OT- IP Subjective and Pain Start: 02/16/19 11:16 Freq: Status: Active Protocol: Document 02/18/19 11:06 [facility] (Rec: 02/18/19 11:19 [facility] [id number]) OT- Subjective Occupational Therapy Visit Type Type Treatment Note Visit Start Time 09:10 Visit Stop Time 09:36 Total Visit Minutes 26 Occupational Therapy Visit Comments Patient Comments Pt not wanting to shower but agreeable to do caregiver training with pt's . Patient/Caregiver Goals Pt states would rather go home at this time as feels will be able to manage her care. OT Pain Assessment Pain When Pain Assessed At Rest Pain Present Pain Present Denied Pain M4 OT- IP ADL's Start: 02/16/19 11:16 Freq: Status: Active Protocol: Document 02/18/19 11:06 [facility] (Rec: 02/18/19 11:19 [facility] [id number]) OT [id number] Comments OT Self-Feeding Comments NOt at meal time. OT ADL-Dressing Comments OT Dressing Comments Pt SBA if doing Lb dressing from supine, CGA if having to stand with FWW for balance while pulling up brief ,pants. OT ADL-Toileting General Evaluation Toileting Ability Standby Assistance Comments OT Toileting Comments Pt able to sit down to the toilet, able to show that she can reach back to wipe appropriately for hygiene needs. Pt still has lange in place. Pt feels that she can now possible tell if having to urinate. If pt still having to have lange in place, educated that a leg bag would help to increase ease for LB dressing needs. Pt would benefit from BSC so can be placed next to the bed at night. OT ADL-Bathing Comments OT Bathing Comments Pt not wanting to shower. Educated either tub bench versus shower chair with back as pt has grab bars in her tub/shower set-up. Pt insisting to just skin washer front of the sink for now to sponge off. M5 OT- IP IADL's Start: 02/16/19 11:16 Freq: Status: Active Protocol: Document 02/16/19 10:23 [facility] (Rec: 02/16/19 11:47 [facility] [id number]) OT-Instrumental Activities of Daily Living Home Safety Awareness Awareness of Need for Assistance at Home Good Awareness Meal Preparation Meal Preparation Caregiver Provides Assist Minilab Operator Minilab Operator Caregiver Provides Assist Driving Driving Caregiver Provides Assist M6 OT- IP Functional Cognition Start: 02/16/19 11:16 Freq: Status: Active Protocol: Document 02/18/19 11:06 [facility] (Rec: 02/18/19 11:19 [facility] [id number]) Cognitive Factors Limiting Selfcare Function Cognitive Comments Cognitive Assessment Comments No deficits noted. M7 OT- IP Mobility and Balance Start: 02/16/19 11:16 Freq: Status: Active Protocol: Document 02/18/19 11:06 [facility] (Rec: 02/18/19 11:19 [facility] [id number]) OT- Bed Mobility Assessment Rolling Type of Rolling Roll to Right Level of Assistance Standby Assistance,Bedrails Supine to Sit Supine to Sit Assist Standby Assistance,1 Person Assistance,Bedrails Sit to Supine Sit to Supine Assist Standby Assistance,1 Person Assistance,Bedrails Scooting Scooting to Edge of Bed Standby Assistance OT-Transfer Assessment Sit to and From Stand Sit to and from Stand Standby Assistance,Contact Guard Assistance Transfers Transfer Ability Standby Assistance,Contact Guard Assistance Technique Transfer Destination Bed,Toilet Transfer Technique Stand Step Pivot Devices Transfer Assistive Devices Gait Belt,Front Wheeled Walker Comments Mobility Comments Pt much improved with bed mobility however would benefit from either to hold FWW in place next to the bed or get a bed rail for the bed. Notified case manegment for pt 's need of FWW for home use if going home. Also recommended if pt having to walk longer distances would benefit from a wheelchair. Pt's to go to [facility] Friday to check of getting equipment. Pt's able to show good safety to ruba/doff gait belt and provide assist for bed mobility and transfer needs. OT- Balance Assessment Sitting Balance and Reactions Static Sitting Balance Ability Good Dynamic Sitting Balance Ability Fair Standing Balance and Reactions Static Standing Balance Ability Fair M8 OT- IP Objective Assessments Start: 02/16/19 11:16 Freq: Status: Active Protocol: Document 02/16/19 10:23 [facility] (Rec: 02/16/19 11:47 [facility] [id number]) OT Gross Range of Motion Upper Extremity Range of Motion Assessment Right Impaired ROM Impairments LUE WFL, RUE 0-100 for shoulder flexion. OT Strength Comments Strength Comments RUE 4/5, LUE 4-/5 OT- Coordination Assessment Comments Coordination Comments Pt decreased for FMS, needing assist to open items for grooming needs. M9 OT- IP Assessment and Plan Start: 02/16/19 11:16 Freq: Status: Active Protocol: Document 02/18/19 11:06 [facility] (Rec: 02/18/19 11:19 [facility] [id number]) OT Summary Assessment and Plan Potential Rehabilitation Potential Good Analytic Complexity at Evaluation Low Summary OT Impairments Pain,Strength,Functional Mobility,Dressing,Toileting, Bathing,Toilet Transfers, Shower Transfers Progress Towards Goals Progressing Toward Goals Assessment Summary Pt able to tolerate sitting more at this time and feels more confident to go home versus skilled rehab as able to assist pt for all needs. Pt will need to get BSC, FWW, bed rail, and shower chair versus tub bench, and WC to help with ADl and functional mobility needs at home. Goals Grooming Goal Independent Dressing Goal Independent Toileting Goal Independent Bathing Goal Minimal Assistance Toilet Transfer Goal Independent Shower Transfer Goal Minimal Assistance Patient/Caregiver Education Goal Caregiver Independent Assisting Patient Days to Meet Goals 1 Frequency of Treatment Frequency Of Treatment Once a Day Treatment Plan OT Treatment Plan ADL Training,Functional Mobility,Patient/Family Education,Discharge Planning Other Treatment Recommendations and Next shower Treatment Focus Discharge Recommendations OT Discharge Recommendations Home with Assistance,Home Health Home Equipment Needs BSC, tub bench, FWW, bed rail, wc
[2019-02-18 12:00] VITALS: BP 142/91; PULSE 91; RESP 18; TEMP 36.2; O2SAT 99
--- NOTE | 2019-02-18 12:10 | PT.IPTN ---
Physical Therapy Treatment Note M2 PT-IP Current Condition Start: 02/15/19 13:52 Freq: Status: Discharge Protocol: Document 02/15/19 16:45 AW (Rec: 02/15/19 17:13 AW [id number]) Physical Therapy Current Condition Current Condition Evaluation Date 02/15/19 Treatment Diagnosis sacral insufficiency fractures , difficulty in walking Onset Date 02/10/19 Weight Bearing Status Weight Bearing Status Weight Bear as Tolerated Allowed Weight Bearing Amount (enter % Per Dr. Donaldson, Dr. Malin or #) (%) consulted and recommended WBAT with assistive device. M3 PT-IP Subjective Start: 02/15/19 13:52 Freq: Status: Discharge Protocol: Document 02/18/19 16:25 [facility] (Rec: 02/18/19 13:29 SP [email or web address]) Subjective Physical Therapy Visit Type Type Treatment Note Visit Start Time 11:25 Visit Stop Time 12:10 Total Visit Minutes 45 Number of FINISHING AND SHIPPING SUPERVISOR Visits 3 Physical Therapy Visit Comments Patient Comments Pt willing to work with PT. Therapy Pain Assessment Pain When Pain Assessed At Rest Pain Present Pain Present Pain Reported Location R hip Intensity 4 Scale Used 4/10 at rest, 8-10/10 post gait and stair mgt Description Acute,Sharp,Throbbing Pain Behaviors Calling Out,Facial Grimacing, Holding Area,Moaning, Restlessness Pain Management Techniques Apply Cold,Re-positioning, Timing of Activity with Medications M4 PT-IP Mobility and Gait Start: 02/15/19 13:52 Freq: Status: Discharge Protocol: Document 02/18/19 16:25 [facility] (Rec: 02/18/19 13:29 SP [email or web address]) PT-Bed Mobility Assessment Rolling Type of Rolling Roll to Right Level of Assist Contact Guard Assistance Supine to Sit Supine to Sit Minimal Assistance,1 Person Assistance,Bedrails Scooting Scooting to Edge of Bed Standby Assistance PT-Transfer Assessment Sit to and From Stand Sit to and from Stand Contact Guard Assistance,Use of Upper Extremities Equipment Transfer Assistive Device Gait Belt,Front Wheeled Walker Orthotic/Prosthetic Devices or Brace: No Transfers Transfer Destination Chair,Wheelchair Transfer Technique Pt ambulated with FWW Transfer Ability Level of Assist Contact Guard Assistance,1 Person Assistance,Use of Upper Extremities Comments Mobility Comments Pt was laying in bed when arrived. Took patient 3 attempts to complete supine to sitting secondary to increasing irritability of R posterior pelvic pain with verbal calling out throbbing pain as mobilizes, HOB was flat to assimulate home environment requiring CGA including max cuing for proper log roll technique and redirection of BUE for use of bed rail and bed to pull/push from to increase independence to transition herself to sitting. Pt was able to scoot herself to EOB using BUE and wt shifting SBA, sit to stand CGA with BUE to push from bed. Pt walked from EOB to stairs. Pt was able to step pivot transfer w/c to bed side chair with max cuing for upright posture, awareness of obstacle managment around the corner of her bed and keeping FWW with her while backing up and reaching back prior to sitting in chair for safety. Pt has poor safety awareness while in pain end of tx. Pt was up in chair with call light and all needs in reach when left. Gait Assessment Gait Gait Assistance Required: Standby Assistance,Contact Guard Assist,1 Person Assist Distance (Feet) 192 Able to Maintain Weight Bearing Status Yes During Gait Assistive Devices Assistive Device Gait Belt,Front Wheeled Walker Orthotic/Prosthetic Devices or Brace: No Gait Deviations General Gait Pattern Antalgic,Decreased Stride Length,Decreased Feet Clearance,Flexed Trunk Factors Limiting Gait Function Factors Limiting Gait Function Decreased Activity Tolerance, Decreased Sensation,Decreased Strength,Pain,Poor Balance, Poor Safety Awareness Comments Gait Comments Pt was able to ambulate side of her bed to stairs approx 192 ft, step over step gait using FWW SBA to CGA with decreased BUE WB on FWW noted initially, w/c follow secondary to decreased strength and activity tolerance with reported pain. Pt was unable to walk back to room after stair management secondary to increase R posterior pelvic pain from / to 810 with unsteady forward flexted trunk on FWW posture gait increasing Min A to sit back in w/c. Pt was able to walk short distance 10 ft in room to chair using FWW CGA with mod cuing for obstacle mgt around end of bed and safety keeping FWW in front until full sitting and reaching back and slow descent prior to sitting. Stair Climbing Assessment Evaluation Level of Assist On Stairs Minimal Assistance,Moderate Assistance,1 Person Assistance Devices Stair Climbing Assistive Devices Straight Cane,Right Railing Technique/Endurance Stair Climbing Direction Ascend and Descend Stair Climbing Technique Step to Step Number of Steps Climbed 3 Stair Climbing Set # Repetitions (reps) 2 Comments Stair Climbing Comments Pt was able to complete ascend /descend 3 stairs usign R HR and SPC in LUE requiring Min A initially, she required standing rest break on top platform landing demonstrating leaning on top rail with forearms for apprx 3 min before descending. Pt encouraged to trail a second set to work toward her 8 stairs has at home (no landing ). Pt's lack of over all strength required increased Mod A with therapist to provide support to steady patient's LUE while using SPC while ascending the stairs, Min A descending with lateral trunk lean on SPC. Pt was only able to complete 6 stairs before required to sit down in w/c. PT-Balance Assessment Sitting Balance and Reactions Static Sitting Balance Ability Good Dynamic Sitting Balance Ability Fair Standing Balance and Reactions Static Standing Balance Ability Good Dynamic Standing Balance Ability Fair Device Used FWW Comments Other Balance Tests/Deviations/Treatment Pt demonstrated poor standing : balance during stair mgt. M5 PT-IP Objective Assessments Start: 02/15/19 13:52 Freq: Status: Discharge Protocol: Document 02/15/19 16:45 AW (Rec: 02/15/19 17:13 AW [id number]) Orientation Orientation/Cognition Level of Alertness Alert Orientation Name,Day of Week,Place, Situation Language Function Ability No Deficits Noted Safety Awareness Understands Safety Issues Memory Description No Deficits Noted Gross Range of Motion Upper Extremity ROM Assessment Left Impaired Impairments Remote history of left proximal humerus fracture ( 2008) Lower Extremity ROM Assessment Bilaterally Impaired Impairments Due to pain Strength Lower Extremity Strength Assessment Bilaterally Impaired Hip 3+/5 Knee 4/5 Ankle 4+/5 Comments Strength Comments Strength assessment limited due to report of hip pain (R>L ) with resisted movement Coordination Assessment Gross Coordination Gross Coordination WNL Sensation Assessment Sensation Gross Sensation WNL M6 PT-IP Treatment Start: 02/15/19 13:52 Freq: Status: Discharge Protocol: Document 02/18/19 16:25 SP (Rec: 02/18/19 13:29 SP [email or web address]) Physical Therapy Treatment Education Education Provided Precautions,Weight Bearing Status,Safety Other Treatments Other Treatment Performed Provided education in slower safe pacing during transfers and body spacial awareness using FWW during gait with obstacle navigation for reduce risk for falls, energy conservation and reduction in pain. M7 PT-IP Assessment and Plan Start: 02/15/19 13:52 Freq: Status: Discharge Protocol: Document 02/18/19 16:25 SP (Rec: 02/18/19 13:29 SP [email or web address]) PT Summary Assessment and Plan Potential Rehabilitation Potential Fair Status of Condition at Evaluation Evolving Summary Impairments Pain,ROM,Strength,Balance, Coordination,Sensation,Bed Mobility,Transfers,Gait, Activity Tolerance Assessment Summary See mobility comments. Pt required CGA and use of rail during bed mobility, CGA- Min using FWW during transfers as treatment progressed, CGA- SBA using fWW during gait and Min to Mod A during stair management. Pt would benefit from continued skilled PT to work on strengthening, safety skills during transfers, gait and stair management to safety enter her home, at this time she is unable to complete full 8 stairs to be able to enter her home. Pt reported tingling over dorsal R foot after gait and stair management when returned to room, continue to reassess and doesn't worsen during mobility.. Goals Bed Mobility Goal Standby Assistance Transfer Goal Standby Assistance,Front Wheeled Walker Gait Goal Standby Assistance,Front Wheel Walker Gait Distance 100 Other Goals - up/down 8 steps with unilateral railing CGA Days to Meet Goals 5 Frequency of Treatment Frequency Of Treatment Twice a Day Treatment Plan Physical Therapy Treatment Plan Bed Mobility Training,Transfer Training,Gait Training, Therapeutic Exercise,Balance Retraining,Discharge Planning, Hot or Cold Pack Other Recommendations and Next Treatment bed mobility, transfers, gait, Focus 8 stairs R HR/ SPC on L. Recommendations To Nursing Amount of Assist Needed 1 Person Assist Discharge Recommendations PT Discharge Recommendations SNF Rehab Other Discharge Recommendations SNF Equipment Needed for Home Before defer to rehab setting Discharge
[2019-02-18] MEDS: CYCLOBENZAPRINE 5 MG TABLET PO (12:23)
[2019-02-18] MEDS: KETOROLAC 15 MG/ML VIAL IV (12:23)
[2019-02-18] MEDS: OXYCODONE IR 5 MG TABLET PO (12:53)
--- NOTE | 2019-02-18 12:56 | CM.DPC ---
Addendum entered by Brandy Crum R.N. 02/18/19 15:23: Spoke to , Abdoul, in patient's room, pleasant. Stated, he would feel better if she goes over to skilled for a while, and can do the down payment and daily rate. Gave him [facility]smany's phone number in admissions to call, and he will be going over there with check or credit card. Updated Ada at [facility], since face to face was sent. She will hold on to the referral. Faxed over [facility], signed med sheets and discharge summary to [facility]. Gave their address on the Medicare Choice list. Nurse, Jaclyn, is aware. They are working on getting her script for pain medication that the can go and machine operator hop picker. Confirmed that [facility] will pick patient up at approximately 1600 today. Addendum entered by Brandy Crum R.N. 02/18/19 14:23: Ordered walker for patient, gave order to P.T. Have not yet heard back from [email or web address], but Osmany at [facility] admissions stated that daily rate is $375.00, with a 14 day down payment due upon admission of $5,250.00. Will meet with in room today with update. Spoke to [facility]. Verified that they can machine operator hop picker patient via stretcher transfer, and should not cost patient. They work under [facility]. Will need to get form signed by provider, if this is the case. Have not yet set up, since plan is to meet with . Addendum entered by Brandy Crum R.N. 02/18/19 13:08: Spoke to Dr. Pagan and gave him update. He will write discharge orders. Let him know that this case manage would continue to attempt skilled as private pay, or home health. Will continue to get in touch with [email or web address], and [facility]. Will have orders that will cover both. Original Note: DCP Cont: Went ahead and called [facility] to get some ideas on cost of transport. Stated that [facility] would cost about $95.00, and they could offer some limited assist up the stairs. Stated that if patient could not make it up the stairs, they would bring her back here. [facility] transport is approximately $[address] Called and spoke to , Abdoul. He stated, he thinks that he could help her up the stairs, and could come in for training with physical therapy today. Stated that his stated, it costs about $400.00 a day to stay here. Let him know that cost to stay here in hospital is roughly $2000.00 a day, but if she were to go to [facility], would be about $400.00 a day. Asked if he could afford this, and stated, he thinks that they can manage $400.00 a day. Left a message with Nat in admissions at [facility]. Will try again. Also, left a message with [facility] as far as private pay option, but would need a large down payment. P: Plan is for skilled or home health. Will continue to work on this discharge. Brandy Crum RN/House Piping Inspector
--- NOTE | 2019-02-18 13:22 | P.DS_ITS ---
History of Present Illness History of Present Illness Chief complaint: Fall-back pain Narrative: Patient is 74-year-old female with 5 days history of following words and landing on her bottom. She did not trip just simply lost balance and fell after pulling a cord out from apply again. Did not hit her head did not lose consciousness but gradually over the next few days developed increasingly severe pain with muscle spasms and bony pain. Also has some neurologic abnormality in that she doesn't feel clearly when she needs to go to the bathroom and that is new since her fall. She has had such bad pain that she actually was crawling around home rather than being able to stand or straight. She had intermittently taken some ibuprofen for pain at home but not doing much. Patient has a long history of alcohol use and smoking as well but she states that this and injury occurred in the chief underwriter after getting up in she was not intoxicated at that point. Discharge Providers Provider Date of admission: 02/15/19 16:09 Discharge Date: 02/18/19 Primary care physician: Janes Pagan MD Consults: 02/15/19 13:18 Consult to Physical Therapy Evaluate & Treat Comment: pain upon ambulation / difficulty ambulating. Physician Instructions: Evaluate and Treat 02/15/19 17:47 Consult to Physical Therapy Evaluate & Treat Comment: Physician Instructions: Evaluate and Treat 02/16/19 09:49 Consult to Occupational Therapy Evaluate & Treat Comment: Physician Instructions: Evaluate and treat Discharge provider: Janes Pagan MD Summary Hospital Course Discharge Diagnosis: Patient was admitted because of a fall with a sacral fracture. This led to progressive lower extremity pain muscle spasms as well as some neurologic loss and terms of controlling her urine output. Was admitted treated with therapy and has had some improvement and pain although pain is worse today since removal of her Tyler catheter in she has had to be up a lot more moving more and and this is her most severe pain day since getting admitted. Because of her good work with physical therapy her insurance has stated that they don't think she qualifies for placement at skilled care facility. However our physical therapy says her pain is increasing and her ability to be stable on stairs which she has to traverse at home to get into her house is less today putting her at risk for fall. Hospital Course: Same as above documentation Status at Discharge Cognitive/behavioral status at discharge: oriented Functional status at discharge: uses cane/walker Overall status at discharge: patient is not back to baseline Time Spent with Patient Time spent: Greater than 30 minutes Exam Vital Signs (past 8 hours): - 02/18/19 05:47 02/18/19 08:00 02/18/19 12:00 Temperature 97.9 F 97.3 F L 97.2 F L Pulse Rate 72 71 91 H Respiratory Rate 16 18 18 Blood Pressure 143/88 H 141/79 H 142/91 H Pulse Oximetry 95 98 99 Oxygen Delivery Method Room Air Oxygen Flow Rate 0 Narrative Exam Narrative: Patient alert and oriented PERRLA EOMs intact Neck supple without mass or pain Lungs decreased breath sounds throughout some coughing and rhonchi Heart shows regular rate and rhythm without significant murmur or edema Abdomen is shows no rebound guarding hepatosplenomegaly or mass Back shows significant pain lower back and into the sacral area which limits her ability to get comfortable can't lay on her back can sit limits on her ability to go upstairs today too much lower safety rate then she would need for the existing store she has to get into her home skin Skin shows no breakdown Neuro patient has had some neurologic decreased to make it so that she'd not able to tell when she needs to go to the bathroom on admission because of this sacral fracture Extremities symmetrical without edema Objective Labs Result Diagrams: 02/15/19 12:20 02/17/19 04:40 Discharge Plan Discharge Plan Patient Disposition: Home Discharge comment: Fractured sacrum with residual weakness and limit some mobility with significant risks for repeat fall Discharge orders & Medications Prescriptions: Continued levothyroxine 112 mcg tablet 56 mcg PO QAM RF: 0 sertraline 100 mg Tablet 50 mg PO DAILY RF: 0 alprazolam [Xanax] 0.25 mg Tablet 0.25 mg PO DAILY RF: 0 cefuroxime axetil 250 mg Tablet 250 mg PO DAILY RF: 0 azithromycin 250 mg Tablet 250 mg PO DAILY RF: 0 prednisone 50 mg Tablet 50 mg PO DAILY RF: 0 Follow up/Referrals: Janes Pagan MD [Primary Care Provider] - Diet/Activity/Treatments Diet: Diet as Tolerated Activity: Limited by her sacral fracture. Needs to be able to traverse stairs to get into her home which I'm not sure she is safe to do at this point. Cold/Heat Therapy: Alternating cold and heat Visit Report/Discharge Packet Visit Report Forms: Patient Portal/API, Stroke Signs & Symptoms Discharge Data Primary Care Provider: Janes Pagan Attending Provider: Janes Pagan Admit Date/Time: 02/15/19 16:09
--- NOTE | 2019-02-18 14:34 | PC.NURSE ---
Mobility/Pain/: Tyler out this am and has voided. Today is the first day she has been up and moving as much as she has been. Pain issues this afternoon, recieved some toradol and flexaril this afternoon. Dr Pagan called and received order for oxycodone, after receiving meds pt reported she had control of her pain. Poss transfer home or to facility today pending spouses arrival and joint decisions. He is expected to return any time. Plan has been made for either choice they decide to make.
--- NOTE | 2019-02-18 15:41 | PT.IPTN ---
Physical Therapy Treatment Note M2 PT-IP Current Condition Start: 02/15/19 13:52 Freq: Status: Discharge Protocol: Document 02/15/19 16:45 AW (Rec: 02/15/19 17:13 AW [id number]) Physical Therapy Current Condition Current Condition Evaluation Date 02/15/19 Treatment Diagnosis sacral insufficiency fractures , difficulty in walking Onset Date 02/10/19 Weight Bearing Status Weight Bearing Status Weight Bear as Tolerated Allowed Weight Bearing Amount (enter % Per Dr. Donaldson, Dr. Malin or #) (%) consulted and recommended WBAT with assistive device. M3 PT-IP Subjective Start: 02/15/19 13:52 Freq: Status: Discharge Protocol: Document 02/18/19 15:21 SP (Rec: 02/18/19 16:17 SP [email or web address]) Subjective Physical Therapy Visit Type Type Treatment Note Visit Start Time 15:21 Visit Stop Time 15:41 Total Visit Minutes 20 Number of SUPERINTENDENT DRILLING Visits 4 Physical Therapy Visit Comments Patient Comments Pt willing to work with PT. Therapy Pain Assessment Pain When Pain Assessed At Rest Pain Present Pain Present Pain Reported Location R hip Intensity 4 Scale Used 4/10 at rest, 6/10 during mobility Description Acute,Throbbing Pain Behaviors Facial Grimacing,Holding Area, Moaning Pain Management Techniques Apply Cold,Re-positioning, Timing of Activity with Medications M4 PT-IP Mobility and Gait Start: 02/15/19 13:52 Freq: Status: Discharge Protocol: Document 02/18/19 15:21 SP (Rec: 02/18/19 16:17 SP [email or web address]) PT-Bed Mobility Assessment Rolling Type of Rolling Roll to Right Level of Assist Contact Guard Assistance Supine to Sit Supine to Sit Contact Guard Assistance,Head of Bed Elevated,Bedrails Sit to Supine Sit to Supine Contact Guard Assistance,Head of Bed Elevated,Bedrails Scooting Scooting to Edge of Bed Standby Assistance PT-Transfer Assessment Sit to and From Stand Sit to and from Stand Contact Guard Assistance,Use of Upper Extremities Equipment Transfer Assistive Device Gait Belt,Front Wheeled Walker Orthotic/Prosthetic Devices or Brace: No Transfers Transfer Technique Pt ambulated with FWW room distance Transfer Ability Level of Assist Contact Guard Assistance,Use of Upper Extremities Comments Mobility Comments Pt was laying in bed when arrived. Pt was able to complete supine to sitting with HOB elevated and use of bed rail with cuing for log roll to right, hand placement to push from bed withother UE on bed rail to transition to sitting completed on 2nd attempt. Pt was able to scoot to EOB herself little unsteady trunk due to BLE unableto touch the floor but stable once touching. Pt was able to complete sit to stand CGA with cuing for hand placement to push from the bed to stand for improvement in balance using FWW for support to transition to. Pt remembered to reach back prior to sitting after walking room distance with FWW and improved slower pacing bringing BLE up into bed usign reverse log roll reviewed prior treatment. Pt tends to move quickly and causing increased R hip pain during transition of positions. Pt was laying bed with call light and all needs in reach with in room when left. Gait Assessment Gait Gait Assistance Required: Standby Assistance,Contact Guard Assist,1 Person Assist Distance (Feet) 30 Able to Maintain Weight Bearing Status Yes During Gait Assistive Devices Assistive Device Gait Belt,Front Wheeled Walker Orthotic/Prosthetic Devices or Brace: No Gait Deviations General Gait Pattern Antalgic,Decreased Stride Length,Decreased Feet Clearance Factors Limiting Gait Function Factors Limiting Gait Function Decreased Sensation,Decreased Strength,Pain,Poor Balance, Poor Safety Awareness Comments Gait Comments Pt was able to walk room distance using FWW SBA to CGA with cuing for occasional body closer to allow for FWW slower repositioning during end of bed obstacle management , improvement in side stepping within FWW toward HOB with patient requesting verbal confirmation of proper positioning at side HOB and proper hand placement prior to sitting learned at previous treatment. PT-Balance Assessment Sitting Balance and Reactions Static Sitting Balance Ability Good Dynamic Sitting Balance Ability Fair Standing Balance and Reactions Static Standing Balance Ability Good Dynamic Standing Balance Ability Good Device Used FWW M5 PT-IP Objective Assessments Start: 02/15/19 13:52 Freq: Status: Discharge Protocol: Document 02/15/19 16:45 AW (Rec: 02/15/19 17:13 AW [id number]) Orientation Orientation/Cognition Level of Alertness Alert Orientation Name,Day of Week,Place, Situation Language Function Ability No Deficits Noted Safety Awareness Understands Safety Issues Memory Description No Deficits Noted Gross Range of Motion Upper Extremity ROM Assessment Left Impaired Impairments Remote history of left proximal humerus fracture ( 2008) Lower Extremity ROM Assessment Bilaterally Impaired Impairments Due to pain Strength Lower Extremity Strength Assessment Bilaterally Impaired Hip 3+/5 Knee 4/5 Ankle 4+/5 Comments Strength Comments Strength assessment limited due to report of hip pain (R>L ) with resisted movement Coordination Assessment Gross Coordination Gross Coordination WNL Sensation Assessment Sensation Gross Sensation WNL M6 PT-IP Treatment Start: 02/15/19 13:52 Freq: Status: Discharge Protocol: Document 02/18/19 15:21 SP (Rec: 02/18/19 16:17 SP [email or web address]) Physical Therapy Treatment Exercises Exercises Ankle Pumps,Gluteal Sets,Quad Sets,Heel Slides,Straight Leg Raises,Supine Hip Abduction, Seated Knee Flexion/Extension Education Education Provided Precautions,Weight Bearing Status,Safety Other Treatments Other Treatment Performed Ther ex hand outs provided for HEP recall: also included bridging to assist bed mobility. M7 PT-IP Assessment and Plan Start: 02/15/19 13:52 Freq: Status: Discharge Protocol: Document 02/18/19 15:21 SP (Rec: 02/18/19 16:17 SP [email or web address]) PT Summary Assessment and Plan Potential Rehabilitation Potential Good Status of Condition at Evaluation Evolving Summary Impairments Pain,ROM,Strength,Balance, Coordination,Sensation,Bed Mobility,Transfers,Gait, Activity Tolerance Assessment Summary Pt improved in her log roll using bed rails with less cuing to transition supine<> sitting and slower pacing to decrease pain spasming durign position changes. Pt required CGA throughout all mobility using FWW with occasional cuing for slower pacign, safety hand placement and body closer to FWW with upright posture to reduce risk for falls. Reviewed LE HEP with hand outs to assist increase strength for mobility. SUPERINTENDENT DRILLING recommendation DC to SNF for further skilled PT education in strengthening, safety techniques hand placement/FWW positioning/obstacle mgt, slower pacing for energy conservation, gait and stair management (8 steps RHR and SPC in LUE) to allow for safe DC to home. Goals Bed Mobility Goal Standby Assistance Transfer Goal Standby Assistance,Front Wheeled Walker Gait Goal Standby Assistance,Front Wheel Walker Gait Distance 100 Other Goals - up/down 8 steps with unilateral railing CGA Days to Meet Goals 5 Frequency of Treatment Frequency Of Treatment Twice a Day Treatment Plan Physical Therapy Treatment Plan Bed Mobility Training,Transfer Training,Gait Training, Therapeutic Exercise,Balance Retraining,Discharge Planning, Hot or Cold Pack Other Recommendations and Next Treatment bed mobility, transfers, gait, Focus 8 stairs R HR/ SPC on L. Recommendations To Nursing Amount of Assist Needed 1 Person Assist Discharge Recommendations PT Discharge Recommendations SNF Rehab Other Discharge Recommendations SNF Equipment Needed for Home Before defer to rehab setting Discharge
[2019-02-18 15:50] VITALS: BP 122/87; PULSE 78; RESP 18; TEMP 36.4; O2SAT 100
== END 2019-02-18 16:05 | disposition home or self-care (01) ==
LOC: ED 15:53 → AC 16:10
PROVIDERS: Family Medicine; Admitting Provider Family Medicine; Emergency Provider Emergency Medicine; PCP Family Medicine; Visit Provider Family Medicine
DX: S32.10XA Unspecified fracture of sacrum, initial encounter for closed fracture (principal); M54.9 Dorsalgia, unspecified; W18.39XA Other fall on same level, initial encounter; R32 Unspecified urinary incontinence; E03.9 Hypothyroidism, unspecified; F17.210 Nicotine dependence, cigarettes, uncomplicated; E87.6 Hypokalemia; F10.21 Alcohol dependence, in remission
CPT/HCPCS: 36415; 72100; 72131; 72220; 80048; 80053; 81001; 82550; 84443; 85025; 96372; 96374; 96376; 97110; 97116; 97162; 97165; 97530; 97535; 99284; G0378; J1650; J1885

== ENCOUNTER → 2019-08-21 08:50 | Outpatient (CLI) | payer OTHER, SELFPAY ==
[2019-02-15 17:57] VITALS: BMI 16.8
[2019-08-22 10:37] LABS: COVID19 Sendout Not Detected (Not Detect)
== END ==
PROVIDERS: PCP Family Medicine; Visit Provider Physician Assistant
DX: Z11.59 Encounter for screening for other viral diseases (principal)
CPT/HCPCS: 87635

== ENCOUNTER 2019-08-24 07:51 | Day surgery (SDC) | payer OTHER, SELFPAY ==
[2019-02-15 17:57] VITALS: BMI 16.8
[2019-08-24 09:05] VITALS: BP 141/89; PULSE 107; RESP 20; TEMP 36.9; O2SAT 99; BMI 16.8
[2019-08-24] MEDS: PROPARACAINE 0.5% OPHTH SOL 2 DROPS EYE-OP (09:05)
[2019-08-24] MEDS: CATARACT EYE COMPOUND (10 DROPS/SYRINGE) 3 DROPS EYE-OP (09:10)
--- NOTE | 2019-08-24 09:56 | PM.PREOP ---
Pre-operative Note Interval Note History & Physical reviewed/Exam performed by Physician: Yes Changes to H&P: No
--- NOTE | 2019-08-24 09:56 | PM.OP.1 ---
Operative Date/Time/Diagnoses Pre-op diagnosis: Nuclear cataract right eye Procedure & Clinicians Procedure: Cataract Surgery Same procedure as scheduled: Yes Surgeon: Naif Sheehan Anesthesia Type: MAC +/- and Sedation Operative Notes Procedure in detail: Patient brought to the operating suite. Tetracaine drops placed in the right eye. Patient was prepped and draped in sterile manner. Wire lid speculum was placed in the eye. Betadine drops were placed on the eye. This was irrigated. Lidocaine jelly was placed on the eye. A paracentesis port was created with a side-port blade. 0.1 mL 1% preservative free lidocaine was injected into the anterior chamber. The anterior chamber was deepened with viscoelastic. 2.6 mm keratome was used to create a temporal clear corneal incision. Cystotome and Utrata forceps were used to create continuous tear capsulorrhexis. Balanced salt solution was used to hydro dissect the nucleus. The phacoemulsification handpiece was inserted and the nucleus was removed using the stop and chop technique. The irrigation aspiration handpiece was inserted and the remaining cortex was removed. Anterior chamber was deepened with viscoelastic. An Davison ZCB00 intraocular lens with a power of 22.5 was injected into the capsular bag. Irrigation aspiration handpiece was inserted and the remaining viscoelastic was removed. Incision was hydrated with balanced salt solution and found to be leak free with pressure with Weck-Mignon sponges. 0.1 mL Vigamox injected anterior chamber. 0.3 mL Kenalog 10 mg was injected subconjunctivally. Lid speculum was removed. The patient left the operating room in excellent condition. Complications: none Post-operative Condition: stable Disposition: same day surgery
[2019-08-24] MEDS: ONDANSETRON 4 MG/2 ML INJ IV (10:13)
--- NOTE | 2019-08-24 10:14 | SUR.PREOP ---
Pt nauseated and dry heaving prior to being wheeled back. Medicated with ondansetron after talking with Dr. Reddy
[2019-08-24] MEDS: CHONDROIDTIN/SOD HYALURONATE 1.05 ML SYRINGE INTRAOCULA (10:16)
[2019-08-24] MEDS: TETRACAINE 0.5% OPHTH DROPS 4 ML 2 DROPS EYE-OP (10:17)
[2019-08-24] MEDS: MOXIFLOXACIN INJ 5 MG/ML VIAL EYE-OP (10:17)
[2019-08-24] MEDS: LIDOCAINE JELLY 2% 5 ML 1 APPLIC TOP (10:17)
[2019-08-24] MEDS: PHENYLEPHRINE/LIDOCAINE VIAL (OR) 0.2 ML EYE-OP (10:17)
[2019-08-24] MEDS: TRIAMCINOLONE 50 MG/5 ML VIAL INJ (10:18)
[2019-08-24] MEDS: BALANCED SALT IRRIG SOLN NO.2 500 ML, EPINEPHrine 1 MG IRR (10:18)
[2019-08-24 10:33] VITALS: BP 153/88; PULSE 93; RESP 14; TEMP 37.1; O2SAT 97
== END 2019-08-24 10:45 | disposition home or self-care (01) ==
PROVIDERS: PCP Family Medicine; Referring Provider Family Medicine; Visit Provider Ophthalmology
PROC: (CPT 66984; principal; 2019-08-24 09:45)
DX: H25.11 Age-related nuclear cataract, right eye (principal)
CPT/HCPCS: 66984; J0171; J2250; J2405; J3010; J3301

== ENCOUNTER → 2019-09-04 14:31 | Outpatient (CLI) | payer OTHER, SELFPAY ==
[2019-02-15 17:57] VITALS: BMI 16.8
[2019-09-05 17:42] LABS: COVID19 Sendout Not Detected (Not Detect)
== END ==
PROVIDERS: PCP Family Medicine; Visit Provider Physician Assistant
DX: Z01.812 Encounter for preprocedural laboratory examination (principal)
CPT/HCPCS: 87635

== ENCOUNTER 2019-09-07 07:05 | Day surgery (SDC) | payer OTHER, SELFPAY ==
[2019-02-15 17:57] VITALS: BMI 16.8
[2019-09-07] MEDS: PROPARACAINE 0.5% OPHTH SOL 2 DROPS EYE-OP (07:19)
[2019-09-07] MEDS: CATARACT EYE COMPOUND (10 DROPS/SYRINGE) 3 DROPS EYE-OP (07:20)
[2019-09-07 07:22] VITALS: BP 153/85; PULSE 85; RESP 18; TEMP 36.8; O2SAT 97; BMI 16.9
--- NOTE | 2019-09-07 08:13 | PM.PREOP ---
Pre-operative Note Interval Note History & Physical reviewed/Exam performed by Physician: Yes Changes to H&P: No
--- NOTE | 2019-09-07 08:14 | P.OP_ITS ---
Operative Date/Time/Diagnoses Pre-op diagnosis: Nuclear Cataract Left eye Post-op diagnosis: same Procedure & Clinicians Same procedure as scheduled: Yes Surgeon: Naif Sheehan Anesthesia Type: MAC +/- and Sedation Operative Notes Procedure in detail: Patient brought to the operating suite. Tetracaine drops placed in the left eye. Patient was prepped and draped in sterile manner. Wire lid speculum was placed in the eye. Betadine drops were placed on the eye. This was irrigated. Lidocaine jelly was placed on the eye. A paracentesis port was created with a side-port blade. 0.1 mL 1% preservative free lidocaine was injected into the anterior chamber. The anterior chamber was deepened with viscoelastic. 2.6 mm keratome was used to create a temporal clear corneal incision. Cystotome and Utrata forceps were used to create continuous tear capsulorrhexis. Balanced salt solution was used to hydro dissect the nucleus. The phacoemulsification handpiece was inserted and the nucleus was removed using the stop and chop technique. The irrigation aspiration handpiece was inserted and the remaining cortex was removed. Anterior chamber was deepened with viscoe lastic. An Davison ZCB00 intraocular lens with a power of 23.5 was injected into the capsular bag. Irrigation aspiration handpiece was inserted and the remaining viscoelastic was removed. Incision was hydrated with balanced salt solution and found to be leak free with pressure with Weck-Mignon sponges. 0.1 mL Vigamox injected anterior chamber. 0.3 mL Kenalog 10 mg was injected subconjunctivally. Lid speculum was removed. The patient left the operating room in excellent condition. Complications: none Post-operative Condition: stable Disposition: same day surgery
[2019-09-07] MEDS: CHONDROIDTIN/SOD HYALURONATE 1.05 ML SYRINGE INTRAOCULA (08:36)
[2019-09-07] MEDS: LIDOCAINE JELLY 2% 5 ML 1 APPLIC TOP (08:36)
[2019-09-07] MEDS: TRIAMCINOLONE 50 MG/5 ML VIAL INJ (08:37)
[2019-09-07] MEDS: TETRACAINE 0.5% OPHTH DROPS 4 ML 2 DROPS EYE-OP (08:37)
[2019-09-07] MEDS: MOXIFLOXACIN INJ 5 MG/ML VIAL EYE-OP (08:37)
[2019-09-07] MEDS: PHENYLEPHRINE/LIDOCAINE VIAL (OR) 0.2 ML EYE-OP (08:37)
[2019-09-07] MEDS: BALANCED SALT IRRIG SOLN NO.2 500 ML, EPINEPHrine 1 MG IRR (08:38)
== END 2019-09-07 08:53 | disposition home or self-care (01) ==
PROVIDERS: PCP Family Medicine; Referring Provider Ophthalmology; Visit Provider Ophthalmology
PROC: (CPT 66984; principal; 2019-09-07 08:15)
DX: H25.12 Age-related nuclear cataract, left eye (principal)
CPT/HCPCS: 66984; J0171; J2250; J3301

== ENCOUNTER → 2022-07-23 10:11 | Outpatient (CLI) | payer OTHER, SELFPAY ==
[2019-02-15 17:57] VITALS: BMI 16.8
--- NOTE | 2022-07-23 | DI.RAD.S_ITS ---
Bone Density Report Name: MELIDA RAMIREZ Age: 77 Sex: Female Ethnicity: White Date of : 1945 Indication: postmenopausal; screening for osteoporosis; prior fracture; Referring Provider: KAILEE SIMMONS Study: Bone densitometry was performed. Exam Date: July 23, 2022 Accession number: [id number] Bone Density: Region BMD T-score Z-score Classification AP Spine(L1-L4) 0.864 -1.7 0.9 Osteopenia Femoral Neck (Right) 0.388 -4.2 -2.0 Osteoporosis Total Hip (Right) 0.510 -3.5 -1.6 Osteoporosis Total Forearm (Right) 0.315 -4.9 -2.2 Osteoporosis 1/3 Forearm (Right) 0.390 -5.1 -2.2 Osteoporosis UD Forearm (Right) 0.226 -3.7 -1.7 Osteoporosis World Health Organization criteria for BMD impression classify patients as: Normal (T-score at or above -1.0), Osteopenia (T-score between -1.0 and -2.5), or Osteoporosis (T-score at or below -2.5). 10-year Fracture Risk: FRAX not reported because: Some T-score for Spine Total or Hip Total or Femoral Neck at or below -2.5 Prior hip or vertebral fracture Impression: The patient has established osteoporosis, based on the Right Femoral Neck T-score and the existence of a prior fracture. The patient has risk factors, including: previous fracture. Discussion: HIGH RISK OF FRACTURE. BONE DENSITY IS UNDESIRABLY LOW AT ONE OR MORE SKELETAL SITES, CONSISTENT WITH POSTMENOPAUSAL OSTEOPOROSIS. This patient's lowest T-score, in a patient who has previously fractured, meets the World Health Organization's (WHO) criteria for severe osteoporosis. In untreated patients, the risk of osteoporotic fracture increases approximately two-fold for each 1.0 SD decrease in T-score. Low bone density is not the only risk factor for fracture; also consider factors such as patient's age, frailty or poor health, risk of falling, risk of injury, previous osteoporotic fracture, family history of osteoporosis, cigarette smoking, low body weight, etc. Not everyone with low bone mineral density has osteoporosis; osteomalacia and other metabolic bone disorders should also be considered. Patients who have osteoporosis should be evaluated for specific diseases and conditions (secondary causes) that may cause or contribute to bone loss. The [place] [employer] (AACE) and National Osteoporosis Foundation (NOF) recommend pharmacologic intervention for all postmenopausal women with a previous hip or vertebral fracture and a T-score in this range. The patient should follow a healthful lifestyle (good nutrition with adequate calcium and vitamin D, and appropriate weight-bearing exercise). Follow-Up: Consider a repeat BMD and Vertebral Fracture Assessment (VFA) exam in 2 years or sooner if medically necessary, to reassess this patient's status. Reported by: DEBI SHIRLEY M.D. on 07/23/2022 10:46:00 AM.
== END ==
PROVIDERS: PCP Family Medicine; Referring Provider Family Medicine; Visit Provider Family Medicine
DX: M81.0 Age-related osteoporosis without current pathological fracture (principal); Z13.820 Encounter for screening for osteoporosis; Z78.0 Asymptomatic menopausal state
CPT/HCPCS: 77080; 77081